=== PATIENT | female | born 1945 | race Caucasian/White ===

== ENCOUNTER → 2020-03-15 10:13 | Outpatient (CLI) | payer MEDICARE, OTHER, SELFPAY ==
--- NOTE | ~2020-03-15 | DEXA_ITS ---
Bone Density Report Name: Danielle Dial Age: 74 Sex: Female Ethnicity: White Date of : 1945 Indication: postmenopausal; screening for osteoporosis; height loss; inflammatory bowel disease; prior fracture; Referring Provider: Remedios Christensen Study: Bone densitometry was performed. Exam Date: March 15, 2020 Accession number: [id number] Bone Density: Region BMD T-score Z-score Classification AP Spine (L1-L4) 0.921 -1.1 1.4 Osteopenia Femoral Neck (Left) 0.724 -1.1 1.0 Osteopenia Total Hip (Left) 0.861 -0.7 1.2 Normal Femoral Neck (Right) 0.819 -0.3 1.9 Normal Total Hip (Right) 0.885 -0.5 1.4 Normal Total Hip Mean 0.873 -0.6 1.3 Normal World Health Organization criteria for BMD impression classify patients as: Normal (T-score at or above -1.0), Osteopenia (T-score between -1.0 and -2.5), or Osteoporosis (T-score at or below -2.5). 10-year Fracture Risk(1): Major Osteoporotic Fracture 16% Hip Fracture 2.5% Reported Risk Factors: [place] (), Neck BMD=0.724, BMI=30.1, previous fracture (1) FRAX(R) Version 3.08. Fracture probability calculated for an untreated patient. Fracture probability may be lower if the patient has received treatment. Previous Exams: Region Exam Age BMD T-score BMD Change BMD Change Date g/cm2 vs Baseline vs Previous AP Spine(L1-L4) 03/15/2020 74 0.921 -1.1 0.018 -0.030* 04/19/2017 71 0.951 -0.9 0.048* 0.048* 04/16/2015 69 0.903 -1.3 Total Hip(Left) 03/15/2020 74 0.861 -0.7 0.025 0.014 04/19/2017 71 0.847 -0.8 0.011 0.011 04/16/2015 69 0.836 -0.9 Total Hip(Right) 03/15/2020 74 0.885 -0.5 0.034* 0.019 04/19/2017 71 0.866 -0.6 0.016 0.016 04/16/2015 69 0.851 -0.7 *Denotes significance at 95% confidence level, LSC for AP Spine = 0.022 g/cm2, LSC for Total Hip = 0.027 g/cm2 Clinical Information Provided by Patient: Has had a low trauma fracture Has used the following medications: Vitamin D, Calcium Has the following medical conditions: Inflammatory bowel diseases, COLITIS Patient maximum height was 64.7 Menopause Age: 46 Drinks caffeinated beverages Onset of menses at age 10 Number of children 2 Impression: The patient has low bone mass, based on the Total Spine T-score. The patient has an estimated ten-year risk of hip fracture of 2.5% and a
== END ==
PROVIDERS: PCP Internal Medicine; Visit Provider Nurse Practitioner
DX: Z78.0 Asymptomatic menopausal state (principal); M85.88 Other specified disorders of bone density and structure, other site; M85.852 Other specified disorders of bone density and structure, left thigh
CPT/HCPCS: 77080

== ENCOUNTER 2020-03-22 07:55 | Outpatient (CLI) | payer MEDICARE, OTHER, SELFPAY ==
--- NOTE | ~2020-03-22 | NM_ITS ---
EXAMINATION: NM bone scan whole body DATE: 03/22/2020 12:32 INDICATION: L1 spinal lesion. TECHNIQUE: 26.65 mCi Tc-99m HDP was administered intravenously. Delayed whole-body scintigrams were obtained. COMPARISON: 03/13/[address] dated 03/06/2019 FINDINGS: No interval change in mild joint centered increased uptake at the left knee and bilateral feet, ankle s, shoulders, hands and wrists. No abnormal increased uptake associated with the lucent lesion at the right side of L1 which demonstrates intact vertical trabecula extending through central fat attenuat ion which would be most consistent with a hemangioma. IMPRESSION: 1. No suspicious bone lesions. Specifically no abnormal uptake associated with a lucent L1 bone lesio n with appearance on CT most consistent with a hemangioma. Reviewed, dictated and finalized at location A. T GUARD IMPRESSION: 1. No suspicious bone lesions. Specifically no abnormal uptake associated with a lucent L1 bone lesion with appearance on CT most consistent with a hemangioma .
== END 2020-03-22 07:56 | disposition home or self-care (01) ==
PROVIDERS: PCP Internal Medicine; Visit Provider Internal Medicine
DX: G95.9 Disease of spinal cord, unspecified (principal)
CPT/HCPCS: 78306; A9561

== ENCOUNTER → 2020-03-28 14:25 | Outpatient (CLI) | payer MEDICARE, OTHER, SELFPAY ==
--- NOTE | ~2020-03-28 | XR_ITS ---
EXAMINATION: XR knee LT 3V DATE: 03/28/2020 15:28 INDICATION: Unilateral primary osteoarthritis of left knee. TECHNIQUE: 3 views of left knee were obtained. COMPARISON: Left knee radiographs 02/07/2018, left knee MRI 11/16/2016 FINDINGS: Bone alignment is normal. No fracture. There is mild osteoarthritis of medial compartment c haracterized by tiny marginal osteophytes. There is an osteochondral lesion of the patella with inter anish worsening. There is chondrocalcinosis of the menisci. No knee joint effusion. IMPRESSION: 1. Worsened left knee osteoarthritis. Reviewed, dictated and finalized at location B. RVISOR TYPE DISK QUALITY CONTROL
== END ==
PROVIDERS: PCP Internal Medicine; Visit Provider Nurse Practitioner
DX: M17.12 Unilateral primary osteoarthritis, left knee (principal)
CPT/HCPCS: 73562

== ENCOUNTER → 2020-04-27 09:27 | Outpatient (CLI) | payer MEDICARE, OTHER, SELFPAY ==
--- NOTE | ~2020-04-27 | MR_ITS ---
EXAMINATION: MR knee LT wo con DATE: 04/27/2020 10:13 INDICATION: Anterior left knee pain TECHNIQUE: Magnetic resonance imaging (MRI) of the left knee was performed without intravenous contra st. Sequences included coronal PD-weighted FSE, coronal PD-weighted FS FSE, sagittal T2-weighted FSE , sagittal PD-weighted FS FSE and axial PD weighted fat saturated FSE. COMPARISON: Left knee radiographs dated 04/19/2020 FINDINGS: Medial compartment: Medial tear extending across the anterior half of the posterior horn of the medial meniscus. Partial- thickness cartilage loss along medial tibial plateau as well as the anterior to central weightbearing medial femoral condyle. More preserved cartilage thickness but with deep fissuring along the medial third of the posterior weightbearing medial femoral condyle. Lateral compartment: Complex lateral meniscal tear with dominant horizontal tear plane extending to the inferior articular surface of the body and anterior horn of the lateral meniscus. There is secondary radial tear plane at the midportion of the lateral body in the region with a more irregular macerated appearance to the meniscus at the junction of the body and anterior horn. Edema and developing cystic change in the ti sandy underlying the anterior root of the lateral meniscus. Partial-thickness cartilage loss at the buddy tral to posterior weightbearing lateral femoral condyle which involves greater than 50% the cartilage thickness with chondral surface regularity at the posterior weightbearing lateral femoral condyle. A dditional partial thickness cartilage loss along the medial aspect of the lateral tibial plateau curtis g the shoulder the intercondylar eminence. Patellofemoral compartment: Deep chondral ulceration and fissuring with underlying cortical irregularity and subarticular edema a t the medial patellar facet. Small region of deep chondral ulceration and fissuring at the inferolate ral aspect of the medial trochlea. Ligaments and tendons: Anterior and posterior cruciate ligaments are normal. The medial collateral ligament is normal. There is mild thickening and increased signal at the proximal fibular collateral ligament without surround ing edema consistent with mild scarring related to chronic sprain. The extensor mechanism is normal. The visualized medial and lateral hamstring tendons as well as the iliotibial band are normal. Fluid: Physiologic amount of fluid in the joint space. No loose osteochondral bodies identified. Osseous/other: Normal marrow signal aside from the previously noted small regions of edema at the medial patellar fa cet and tibial insertion of the anterior root of the lateral meniscus. No fracture or pathologic sue ow replacing process. IMPRESSION: 1. Complex tear of the body and anterior horn of the lateral meniscus. 2. Partial thickness radial tear at the posterior horn of the medial meniscus. 3. Mild tricompartmental osteoarthritis with high-grade chondromalacia the medial patellar facet and moderate grade chondromalacia at the medial trochlea and in the medial and lateral compartments. Reviewed, dictated and finalized at location B. ER EMBOSSER IMPRESSION: 1. Complex tear of the body and anterior horn of the lateral meniscus. 2. Partial thickness radial tear at the posterior horn of the medial meniscus. 3. Mild tricompartmental osteoarthritis with high-grade chondromalacia the medi al patellar facet and moderate grade chondromalacia at the medial trochlea and in the medial and lateral compartments.
== END ==
PROVIDERS: Visit Provider Nurse Practitioner Family
DX: M17.12 Unilateral primary osteoarthritis, left knee (principal); S83.282A Other tear of lateral meniscus, current injury, left knee, initial encounter; X58.XXXA Exposure to other specified factors, initial encounter
CPT/HCPCS: 73721

== ENCOUNTER 2020-06-03 09:16 | Outpatient (CLI) | payer MEDICARE, OTHER, SELFPAY ==
--- NOTE | 2020-06-03 09:20 | ECG_ITS ---
Measurements Intervals Laura Rate: 72 P: 47 NM: 137 QRS: 9 QRSD: 80 T: 17 QT: 360 QTc: 396 Interpretive Statements SINUS RHYTHM DELAYED PRECORDIAL R/S TRANSITION BASELINE ARTIFACT- I, III, AVR, AVL, AVF, V4-V6 BORDERLINE ECG Electronically Signed On 06-03-2020 9:34:34 CUSHION SEWER by Joel Benjamin D.O.
== END 2020-06-03 09:17 | disposition home or self-care (01) ==
LOC: ANHSURGERY 09:20
PROVIDERS: PCP Internal Medicine; Visit Provider Orthopaedic Surgery
DX: E78.00 Pure hypercholesterolemia, unspecified (principal); Z01.818 Encounter for other preprocedural examination; R94.31 Abnormal electrocardiogram [ECG] [EKG]
CPT/HCPCS: 93005

== ENCOUNTER → 2020-06-08 12:39 | Outpatient (CLI) | payer MEDICARE, OTHER, SELFPAY ==
[2020-06-09 00:20] LABS: SARS-CoV-2 RNA PCR Negative
== END ==
PROVIDERS: PCP Internal Medicine; Visit Provider Orthopaedic Surgery
DX: Z01.812 Encounter for preprocedural laboratory examination (principal); Z20.822 Contact with and (suspected) exposure to COVID-19
CPT/HCPCS: C9803; U0003; U0005

== ENCOUNTER 2020-06-12 00:08 | Day surgery (SDC) | payer MEDICARE, OTHER, SELFPAY ==
[2020-05-31 09:58] VITALS: BMI 29.2
--- NOTE | 2020-06-11 12:53 | WPDANESEPPF ---
Anes - Initial Pre Proc Eval Procedure: Operation Date: 06/12/20 10:00 Proposed Procedures p Left Knee Arthroscopy, Proceed As Indicated - Edilson Glass MD Date/Time: 06/11/20 12:53 Surgeon: Edilson Glass MD Pre Op Diagnosis: left knee medial and lateral meniscus tear Patient Data Age: 74 Gender: F Height: 1.64 m Weight: 78.47 kg Allergies Allergy/AdvReac Type Severity Reaction Status Date / Time oxytetracycline Allergy Severe FACIAL Verified 06/12/20 08:10 SWELLING Sulfa (Sulfonamide Allergy Severe Swelling Verified 06/12/20 08:10 Antibiotics) azithromycin Allergy Unknown Confusion Verified 06/12/20 08:10 tetracycline Allergy Unknown FACIAL Verified 06/12/20 08:10 SWELLING vancomycin Allergy Unknown Swelling Verified 06/12/20 08:10 Home Medications Medication Instructions Recorded Confirmed Type azathioprine 75 mg tablet 1.5 mg/kg PO DAILY tablet 07/06/19 06/12/20 History balsalazide 750 mg capsule 2,250 mg PO TID 07/06/19 06/12/20 History zurekngsbius-yobitumz-ffnows tablet 1 tablet PO DAILY 03/26/20 06/12/20 History acetaminophen 650 mg 650 mg PO Q12H 04/19/20 06/12/20 History tablet,extended release lactase 9,000 unit tablet 9,000 unit PO ONCE 04/19/20 06/12/20 History omeprazole 20 mg capsule,delayed 20 mg PO DAILY 04/19/20 06/12/20 History release chlorhexidine gluconate 4 % 1 applic TOPICAL ONCE #237 ml 05/14/20 05/31/20 Rx topical liquid levothyroxine 100 mcg tablet 100 mcg PO DAILY #90 tablet 05/29/20 06/12/20 Rx biotin 1,000 mcg chewable tablet 1,000 mcg PO DAILY 05/30/20 06/12/20 History calcium carbonate 600 mg calcium 600 mg PO BID 05/30/20 06/12/20 History (1,500 mg) tablet cholecalciferol (vitamin D3) 25 25 mcg PO DAILY 05/30/20 06/12/20 History mcg (1,000 unit) capsule fluticasone propionate 50 2 spray INTRANASAL DAILY 05/30/20 06/12/20 History mcg/actuation nasal spray,suspension loratadine 10 mg tablet 10 mg PO DAILY 05/30/20 06/12/20 History simvastatin 10 mg PO HS 05/31/20 06/12/20 History Patient hx anesthesia problems: none Family hx anesthesia problems: none PMFSH Past Medical History Medical History (Updated 06/04/20 @ 09:10 by JOSH ChampionP-C) Arthritis of left knee Breast cancer Colonic polyp Congestion of nasal sinus Degenerative joint disease of knee Dermatitis Esophageal stricture GERD (gastroesophageal reflux disease) Hyperlipidemia due to dietary fat intake Hypothyroidism, unspecified Left knee pain Lichen planus Osteopenia Postmenopausal Ulcerative colitis Weight gain Surgical History Surgical History H/O section History of elbow replacement Family History Family History Sibling Family history of multiple sclerosis Family history of alcoholism Family history of Parkinson's disease Father Family history of malignant neoplasm, Onset Age: 73 Mother Family history of Alzheimer's disease, Onset Age: 83 Other Depression Diabetes mellitus Family history of neuropathy History of malignant neoplasm of breast Social History Social History Smoking status: Never smoker Second hand tobacco smoke exposure: No Alcohol intake: current Drinks per week: 10 Substance use: never Substance use type: does not use Living arrangements: with family Gender identity (if verbalized by the patient): Female Spiritual care concerns: No Anes - Eval Final PreProcedure Day of Procedure 06/11/20 12:53 Patient weight: overweight Heart: regular rate and rhythm Lungs: clear to auscultation and normal air movement Airway: Mallampati scale class II Neurological: alert and oriented Last oral intake: >/= 8 hours ASA classification: III Emergent: no Anesthetic plan: proceed Anesthesia type and
[2020-06-12] VITALS (11 sets, daily range): BP systolic 140–172; BP diastolic 67–98; PULSE 64–95; RESP 12–18; TEMP 36.2–36.7; O2SAT 95–98
--- NOTE | 2020-06-12 07:38 | WPDHPUPDATE1 ---
History and Physical Update Update Date/Time: 06/12/20 07:38 History and Physical has been reviewed, including an updated exam of the patient. There are NO changes in the patient's condition. Risks, benefits, and alternatives have been discussed and questions answered. Patient agrees to proceed with procedure.
[2020-06-12] MEDS: ACETAMINOPHEN 500 MG TABLET 1000 MG PO (08:13)
[2020-06-12] MEDS: CELECOXIB 200 MG CAPSULE PO (08:13)
[2020-06-12] MEDS: LACTATED RINGERS 1,000 ML 30 ML IV CONT ×2 (08:48→10:19)
[2020-06-12] MEDS: ceFAZolin 2 GM/D5W 50 ML 2 GM/50 ML BAG IVPB (09:22)
[2020-06-12] MEDS: BUPIVACAINE HCL 0.5% PF 30 ML VIAL INFILTRATE (09:47)
--- NOTE | 2020-06-12 10:41 | P.OP_ITS ---
Procedure Note - Detailed Date of procedure: 06/12/20 Pre-op diagnosis: left knee medial and lateral meniscus tear Post-op diagnosis: other (medial meniscus tear, lateral meniscus tear, chondromalacia, synovitis) Procedure performed: LEFT KNEE SCOPE WITH PARTIAL MEDIAL MENISCECTOMY, PARTIAL LATERAL MENISCECTOMY AND MAJOR SYNOVECTOMY Description of procedure: PATIENT WAS TAKEN TO THE OR. LEFT LEG WAS PREPPED AND DRAPED STERILE. TROCARS WERE PLACED IN THE USUAL FASHION. CAMERA WAS INTRODUCED. THERE WAS CHONDROMALACIA TO THE PATELLA FEMORAL JOINT. THERE WAS A LOT OF SYNOVITIS IN ALL COMPARTMENTS. THE MEDIAL COMPARTMENT SHOWED CHONDROMAL ACIA TO THE MED FEMORAL CONDYLE. A SHAVER WAS USED TO PREFORM A CHONDROPLASTY. THERE WAS A COMPLEX MEDIAL MENISCUS TEAR. THE TEAR WAS RESECTED WITH A BITER AND A SHAVER DOWN TO A SMOOTH BASE. ABOUT 10% OF THE MENISCUS WAS REMOVED. THERE WAS A LARGE OSTEOCHONDRAL LESION IN THE POSTERIOR MEDIAL CONDYLE WHICH WAS DEBRIDED TO SMOOTH SURFACE. THE ACL WAS INTACT. THE LATERAL MENISCUS WAS TORN AT THE ANTERIOR HORN. THE TEAR WAS RESECTED. THE LAT COMPARTMENT HAD GRADE 2 CHONDROMALACIA AT THE LATERAL PLATEAU. CHONDROPLASTY WAS PREFORMED. A SYNOVECTOMY WAS PREFORMED WELL. THE PATELLO FEMORAL JOINT UNDERWENT CHONDROPLASTY. THERE WAS GRADE 2 CHONDROMALACIA IN MOST OF THE TROCHLEA AND PART OF THE PATELLA. SYNOVECTOMY WAS PREFORMED IN THE SUPERIOR MEDIAL COMPARTMENT. THE WOUNDS WERE APPROXIMATED WITH 4.0 NYLON. STERILE DRESSING WAS APPLIED. PATIENT WAS EXTUBATED. Anesthesia: GLMA Surgeon: Edilson Glass MD Estimated blood loss (mL): 5 Complications: No immediate complications Condition: stable Disposition: PACU
[2020-06-12] MEDS: fentaNYL CITRATE INJ (*CRX) 100 MCG/2 ML VIAL 25 MCG IV PUSH ×8 (10:53→11:24)
== END 2020-06-12 12:55 | disposition home or self-care (01) ==
PROVIDERS: PCP Internal Medicine; Visit Provider Orthopaedic Surgery
PROC: (CPT 29870; principal; 2020-06-12 10:00)
DX: M23.332 Other meniscus derangements, other medial meniscus, left knee (principal); M23.362 Other meniscus derangements, other lateral meniscus, left knee; M94.262 Chondromalacia, left knee; M65.862 Other synovitis and tenosynovitis, left lower leg; E78.5 Hyperlipidemia, unspecified; E03.9 Hypothyroidism, unspecified; K21.9 Gastro-esophageal reflux disease without esophagitis
CPT/HCPCS: 29880; 97116; A9270; J0690; J2704; J3010; J7120

== ENCOUNTER 2020-11-13 00:59 | Day surgery (SDC) | payer MEDICARE, OTHER, SELFPAY ==
[2020-10-30 11:24] VITALS: BMI 29.5
[2020-11-13 06:52] VITALS: BP 146/91; PULSE 90; RESP 18; TEMP 36.2; O2SAT 93; BMI 29.3
[2020-11-13] MEDS: LACTATED RINGERS 1,000 ML 150 ML IV CONT (06:56)
--- NOTE | 2020-11-13 07:07 | PM.HPGS ---
History of Present Illness History of Present Illness Consent: Risks, benefits, and alternatives have been discussed and questions answered. Patient agrees to proceed with procedure. Chief complaint: ulcerative colitis Narrative: Danielle Dial is a 75 year old female with chronic ulcerative colitis of over 8 years duration. At the time of her last colonoscopy, 3 years ago, many of the biopsies were indefinite for dysplasia Review of Systems Review of Systems: All systems reviewed & are unremarkable except as noted in HPI and below PMFSH Past Medical History Medical History Arthritis of left knee Breast cancer Colonic polyp Congestion of nasal sinus Degenerative joint disease of knee Dermatitis Esophageal stricture GERD (gastroesophageal reflux disease) Hyperlipidemia due to dietary fat intake Hypothyroidism, unspecified Left knee pain Lichen planus Osteopenia Postmenopausal Ulcerative colitis Weight gain Surgical History Surgical History H/O arthroscopic knee surgery Jun 12, 2020 H/O section History of dental surgery August 06, 2020 History of elbow replacement Family History Family History Sibling Family history of multiple sclerosis Family history of alcoholism Family history of Parkinson's disease Father Family history of malignant neoplasm, Onset Age: 73 Mother Family history of Alzheimer's disease, Onset Age: 83 Other Depression Diabetes mellitus Family history of neuropathy History of malignant neoplasm of breast Social History Social History Smoking status: Never smoker Second hand tobacco smoke exposure: No Alcohol intake: current Drinks per week: 6 Alcohol use details: WINE Substance use: never Substance use type: does not use Living arrangements: with family Gender identity (if verbalized by the patient): Female Spiritual care concerns: No Meds Home Medications and Allergies Home Medications Medication Instructions Recorded Confirmed Type [id number]-lijqwrnh-ndhkkb tablet 1 tablet PO DAILY 03/26/20 11/13/20 History acetaminophen 650 mg 650 mg PO Q12H 04/19/20 11/13/20 History tablet,extended release lactase 9,000 unit tablet 9,000 unit PO DAILY 04/19/20 11/13/20 History omeprazole 20 mg capsule,delayed 20 mg PO EVERY OTHER DAY 04/19/20 11/13/20 History release biotin 1,000 mcg chewable tablet 1,000 mcg PO DAILY 05/30/20 11/13/20 History calcium carbonate 600 mg calcium 600 mg PO BID 05/30/20 11/13/20 History (1,500 mg) tablet cholecalciferol (vitamin D3) 25 25 mcg PO DAILY 05/30/20 11/13/20 History mcg (1,000 unit) capsule fluticasone propionate 50 2 spray INTRANASAL DAILY 05/30/20 11/13/20 History mcg/actuation nasal spray,suspension loratadine 10 mg tablet 10 mg PO DAILY 05/30/20 11/13/20 History simvastatin 10 mg PO HS 05/31/20 11/13/20 History levothyroxine 100 mcg tablet 100 mcg PO DAILY #90 tablet 08/28/20 11/13/20 Rx balsalazide 750 mg capsule 2,250 mg PO TID 90 Days #810 cap 09/10/20 11/13/20 Rx azathioprine 75 mg tablet 75 mg PO DAILY #86 tablet 10/23/20 11/13/20 Rx Allergies Allergy/AdvReac Type Severity Reaction Status Date / Time oxytetracycline Allergy Severe FACIAL Verified 11/13/20 06:51 SWELLING Sulfa (Sulfonamide Allergy Severe Swelling Verified 11/13/20 06:51 Antibiotics) azithromycin Allergy Unknown Confusion Verified 11/13/20 06:51 tetracycline Allergy Unknown FACIAL Verified 11/13/20 06:51 SWELLING vancomycin Allergy Unknown Swelling Verified 11/13/20 06:51 Vital Signs Vital Signs - 24 hr 11/13/20 06:52 Temperature 36.2 C L Pulse Rate 90 Respiratory Rate 18 Blood Pressure 146/91 H Pulse Oximetry 93 Exam Resp: Auscultation
--- NOTE | 2020-11-13 07:40 | WPDANESEPPF ---
Anes - Initial Pre Proc Eval Procedure: Operation Date: 11/13/20 08:00 Proposed Procedures p Colonoscopy - Ron Hill MD Date/Time: 11/13/20 07:40 Surgeon: Ron Hill MD Pre Op Diagnosis: ulcerative colitis Patient Data Age: 75 Gender: F Height: 1.63 m Weight: 77.5 kg Last Vital Signs Temp 97.2 F L 11/13/20 06:52 Pulse 90 11/13/20 06:52 Resp 18 11/13/20 06:52 BP 146/91 H 11/13/20 06:52 Pulse Ox 93 11/13/20 06:52 Allergies Allergy/AdvReac Type Severity Reaction Status Date / Time oxytetracycline Allergy Severe FACIAL Verified 11/13/20 06:51 SWELLING Sulfa (Sulfonamide Allergy Severe Swelling Verified 11/13/20 06:51 Antibiotics) azithromycin Allergy Unknown Confusion Verified 11/13/20 06:51 tetracycline Allergy Unknown FACIAL Verified 11/13/20 06:51 SWELLING vancomycin Allergy Unknown Swelling Verified 11/13/20 06:51 Home Medications Medication Instructions Recorded Confirmed Type [id number]-adnoxhzd-rvbsqp tablet 1 tablet PO DAILY 03/26/20 11/13/20 History acetaminophen 650 mg 650 mg PO Q12H 04/19/20 11/13/20 History tablet,extended release lactase 9,000 unit tablet 9,000 unit PO DAILY 04/19/20 11/13/20 History omeprazole 20 mg capsule,delayed 20 mg PO EVERY OTHER DAY 04/19/20 11/13/20 History release biotin 1,000 mcg chewable tablet 1,000 mcg PO DAILY 05/30/20 11/13/20 History calcium carbonate 600 mg calcium 600 mg PO BID 05/30/20 11/13/20 History (1,500 mg) tablet cholecalciferol (vitamin D3) 25 25 mcg PO DAILY 05/30/20 11/13/20 History mcg (1,000 unit) capsule fluticasone propionate 50 2 spray INTRANASAL DAILY 05/30/20 11/13/20 History mcg/actuation nasal spray,suspension loratadine 10 mg tablet 10 mg PO DAILY 05/30/20 11/13/20 History simvastatin 10 mg PO HS 05/31/20 11/13/20 History levothyroxine 100 mcg tablet 100 mcg PO DAILY #90 tablet 08/28/20 11/13/20 Rx balsalazide 750 mg capsule 2,250 mg PO TID 90 Days #810 cap 09/10/20 11/13/20 Rx azathioprine 75 mg tablet 75 mg PO DAILY #86 tablet 10/23/20 11/13/20 Rx Patient hx anesthesia problems: none Family hx anesthesia problems: none [facility] Past Medical History Medical History Arthritis of left knee Breast cancer Colonic polyp Congestion of nasal sinus Degenerative joint disease of knee Dermatitis Esophageal stricture GERD (gastroesophageal reflux disease) Hyperlipidemia due to dietary fat intake Hypothyroidism, unspecified Left knee pain Lichen planus Osteopenia Postmenopausal Ulcerative colitis Weight gain Surgical History Surgical History H/O arthroscopic knee surgery Jun 12, 2020 H/O section History of dental surgery August 06, 2020 History of elbow replacement Family History Family History Sibling Family history of multiple sclerosis Family history of alcoholism Family history of Parkinson's disease Father Family history of malignant neoplasm, Onset Age: 73 Mother Family history of Alzheimer's disease, Onset Age: 83 Other Depression Diabetes mellitus Family history of neuropathy History of malignant neoplasm of breast Social History Social History Smoking status: Never smoker Second hand tobacco smoke exposure: No Alcohol intake: current Drinks per week: 6 Alcohol use details: WINE Substance use: never Substance use type: does not use Living arrangements: with family Gender identity (if verbalized by the patient): Female Spiritual care concerns: No Anes - Eval Final PreProcedure Day of Procedure 11/13/20 07:40 Patient weight: overweight Heart: regular rate and rhythm Lungs: clear to auscultation Airway: Mallampati scale class II Neurological: alert and oriented L
[2020-11-13 08:19] VITALS: BP 125/69; PULSE 76; RESP 22; O2SAT 97
[2020-11-13 08:29] VITALS: BP 124/68; PULSE 75; RESP 15; O2SAT 97
[2020-11-13 08:39] VITALS: BP 142/76; PULSE 66; RESP 15; O2SAT 96
== END 2020-11-13 08:56 | disposition home or self-care (01) ==
PROVIDERS: PCP Internal Medicine; Visit Provider Internal Medicine Gastroenterology
PROC: 0DJD8ZZ Inspection of Lower Intestinal Tract, Via Natural or Artificial Opening Endoscopic (ICD-10-PCS; CPT 45378; principal; 2020-11-13 08:00)
DX: K51.90 Ulcerative colitis, unspecified, without complications (principal); K57.30 Diverticulosis of large intestine without perforation or abscess without bleeding; E78.5 Hyperlipidemia, unspecified; E03.9 Hypothyroidism, unspecified; K21.9 Gastro-esophageal reflux disease without esophagitis; L43.9 Lichen planus, unspecified; M85.80 Other specified disorders of bone density and structure, unspecified site
CPT/HCPCS: 45380; 88305; J2704; J7120

== ENCOUNTER 2020-12-11 09:16 | Outpatient (CLI) | payer MEDICARE, OTHER, SELFPAY ==
[2020-12-11 09:53] LABS: Basophils Percent Auto 0.7 % (0.2-1.2); Eosinophils Absolute Auto 0.1 K/mm3 (0-0.3); Eosinophils Percent Auto 1.2 % (0-4.4); Hematocrit 40.5 % (37.0-47.0); Hemoglobin 13.8 g/dL (12.0-15.0); Immature Granulocyte Absolute 0.02 K/mm3 (0.00-0.031); Immature Granulocyte Percent A 0.5 % (0-0.5); Lymphocytes Absolute Auto 0.88 K/mm3 (0.9-3.2); Lymphocytes Percent Auto 20.7 % (18.3-44.2); Mean Corpuscular HGB Conc 34.1 g/dl (32-36); Mean Corpuscular Hemoglobin 36.3 pg (26-34); Mean Corpuscular Volume 106.6 fl (80-100); Mean Platelet Volume 8.5 fl (7.4-10.4); Monocytes Absolute Auto 0.5 K/mm3 (0.1-0.6); Monocytes Percent Auto 11.8 % (2.6-8.5); Neutrophils Absolute Auto 2.8 K/mm3 (1.3-6.7); Neutrophils Percent Auto 65.1 % (45.5-73.1); Platelet Count Result 241 k/mm3 (150-375); Red Cell Distribution Width 12.6 % (11.5-14.5); White Blood Count 4.3 K/mm3 (4.5-10.0)
[2020-12-11 10:04] LABS: Alanine Aminotransferase 10 U/L (4-35); Albumin Level 4.6 g/dL (3.5-5.1); Alkaline Phosphatase 54 U/L (38-126); Aspartate Amino Transferase 31 U/L (14-36); Bilirubin,Total 1.1 mg/dL (0.2-1.3)
== END 2020-12-11 09:17 | disposition home or self-care (01) ==
PROVIDERS: PCP Internal Medicine; Visit Provider Internal Medicine Gastroenterology
DX: K51.919 Ulcerative colitis, unspecified with unspecified complications (principal)
CPT/HCPCS: 36415; 80076; 85025

== ENCOUNTER 2021-04-30 09:53 | Outpatient (CLI) | payer MEDICARE, OTHER, SELFPAY ==
[2021-05-07 00:37] LABS: Calprotectin, Stool 403 mcg/g
== END 2021-04-30 09:54 | disposition home or self-care (01) ==
PROVIDERS: PCP Internal Medicine; Visit Provider Internal Medicine Gastroenterology
DX: K51.919 Ulcerative colitis, unspecified with unspecified complications (principal)
CPT/HCPCS: 83993

== ENCOUNTER 2021-07-30 10:38 | Emergency (ER) | payer MEDICARE, OTHER, SELFPAY ==
[2021-07-30 10:54] VITALS: BP 148/70; PULSE 99; RESP 18; TEMP 36.7; O2SAT 97
--- NOTE | 2021-07-30 11:03 | ED.URI ---
HPI - URI/Sore Throat General Chief Complaint: Upper Respiratory Infection Stated Complaint: Sore Throat Time Seen by Provider: 07/30/21 11:03 Source: patient Mode of arrival: ambulatory Limitations: no limitations History of Present Illness HPI Narrative: Danielle Dial is a 76 yo female with hypothyroid, breast cancer, osteopenia, and high cholesterol who comes with complaints of sore throat started yesterday patient is picking up grandchildren and wants to make sure that she has had strep throat. Related Data Home Medications Medication Instructions Recorded Confirmed ugunuuwqdfni-zlpqzbas-nofiro tablet 1 tablet PO DAILY 03/26/20 07/30/21 acetaminophen 650 mg 650 mg PO Q12H 04/19/20 07/30/21 tablet,extended release lactase 9,000 unit tablet 9,000 unit PO DAILY 04/19/20 07/30/21 omeprazole 20 mg capsule,delayed 20 mg PO EVERY OTHER DAY 04/19/20 07/30/21 release biotin 1,000 mcg chewable tablet 1,000 mcg PO DAILY 05/30/20 07/30/21 calcium carbonate 600 mg calcium 600 mg PO BID 05/30/20 07/30/21 (1,500 mg) tablet cholecalciferol (vitamin D3) 25 25 mcg PO DAILY 05/30/20 07/30/21 mcg (1,000 unit) capsule fluticasone propionate 50 2 spray INTRANASAL DAILY 05/30/20 07/30/21 mcg/actuation nasal spray,suspension loratadine 10 mg tablet 10 mg PO DAILY 05/30/20 07/30/21 Allergies Allergy/AdvReac Type Severity Reaction Status Date / Time oxytetracycline Allergy Severe FACIAL Verified 07/30/21 10:55 SWELLING Sulfa (Sulfonamide Allergy Severe Swelling Verified 07/30/21 10:55 Antibiotics) tetracycline Allergy Severe FACIAL Verified 07/30/21 10:55 SWELLING vancomycin Allergy Severe Swelling Verified 07/30/21 10:55 azithromycin Allergy Intermediate Confusion Verified 07/30/21 10:55 Review of Systems Review of Systems: CONSTITUTIONAL: Denies fever, chills, sweats. EYES: Denies visual changes, redness, discharge. ENT: Denies rhinorrhea, congestion, has sore throat, otalgia. CARDIOVASCULAR: Denies chest pain, palpitations, edema. RESPIRATORY: Denies dyspnea, wheezing, cough GASTROINTESTINAL: Denies abdominal pain, nausea, vomiting, diarrhea. GENITOURINARY: Denies dysuria, hematuria, abnormal discharge SKIN: Denies rash or itching. NEUROLOGIC: Denies numbness, or focal weakness. PSYCHIATRIC: Denies anxiety or depression. [facility] Past Medical History Medical History Arthritis of left knee Breast cancer Colonic polyp Congestion of nasal sinus Degenerative joint disease of knee Dermatitis Esophageal stricture GERD (gastroesophageal reflux disease) Hyperlipidemia due to dietary fat intake Hypothyroidism, unspecified Left knee pain Lichen planus Osteopenia Postmenopausal Ulcerative colitis Weight gain Surgical History Surgical History H/O arthroscopic knee surgery Jun 12, 2020 H/O section History of dental surgery August 06, 2020 History of elbow replacement Family History Family History Sibling Family history of multiple sclerosis Family history of alcoholism Family history of Parkinson's disease Father Family history of malignant neoplasm, Onset Age: 73 Mother Family history of Alzheimer's disease, Onset Age: 83 Other Depression Diabetes mellitus Family history of neuropathy History of malignant neoplasm of breast Social History Social History Smoking status: Never smoker Second hand tobacco smoke exposure: No Alcohol intake: current Drinks per week: 6 Alcohol use details: WINE Substance use: never Substance use type: does not use Gender identity (if verbalized by the patient): Female Spiritual care concerns: No Comments At time of signature, I agree with nursing past medical, surgical, social an
== END 2021-07-30 11:14 | disposition home or self-care (01) ==
PROVIDERS: Emergency Provider Nurse Practitioner; PCP Internal Medicine
DX: J02.9 Acute pharyngitis, unspecified (principal); K21.9 Gastro-esophageal reflux disease without esophagitis; E78.5 Hyperlipidemia, unspecified; E03.9 Hypothyroidism, unspecified; M85.80 Other specified disorders of bone density and structure, unspecified site; M17.12 Unilateral primary osteoarthritis, left knee; Z85.3 Personal history of malignant neoplasm of breast; Z96.629 Presence of unspecified artificial elbow joint
CPT/HCPCS: 87081; 87880; 99213; G0463

== ENCOUNTER 2022-01-15 01:45 | Day surgery (SDC) | payer MEDICARE, OTHER, SELFPAY ==
[2022-01-07 09:50] VITALS: BMI 28.0
--- NOTE | 2022-01-14 13:22 | PM.HPGS ---
History of Present Illness History of Present Illness Consent: Risks, benefits, and alternatives have been discussed and questions answered. Patient agrees to proceed with procedure. Chief complaint: ulcerative colitis Narrative: Danielle Dial is a 76 year old female with ulcerative colitis. She continues to have 2 or 3 soft stools per day. Colonoscopy last year revealed active colitis throughout the colon and biopsies in the ascending colon were said to be indefinite for dysplasia Review of Systems Review of Systems: All systems reviewed & are unremarkable except as noted in HPI and below PMFSH Past Medical History Medical History Arthritis of left knee Breast cancer Colonic polyp Congestion of nasal sinus Degenerative joint disease of knee Dermatitis Esophageal stricture GERD (gastroesophageal reflux disease) Hyperlipidemia due to dietary fat intake Hypothyroidism, unspecified Left knee pain Lichen planus Osteopenia Postmenopausal Ulcerative colitis Weight gain Surgical History Surgical History H/O arthroscopic knee surgery Jun 12, 2020 H/O section History of dental surgery August 06, 2020 History of elbow replacement Family History Family History Sibling Family history of multiple sclerosis Family history of alcoholism Family history of Parkinson's disease Father Family history of malignant neoplasm, Onset Age: 73 Mother Family history of Alzheimer's disease, Onset Age: 83 Other Depression Diabetes mellitus Family history of neuropathy History of malignant neoplasm of breast Social History Social History Smoking status: Never smoker Second hand tobacco smoke exposure: No Alcohol intake: current Drinks per week: 6 Alcohol use details: WINE Substance use: never Substance use type: does not use Living arrangements: with family Gender identity (if verbalized by the patient): Female Spiritual care concerns: No Meds Home Medications and Allergies Home Medications Medication Instructions Recorded Confirmed Type jsizdevqelkn-ygcurgnc-fyfmdg 1 tablet PO DAILY 03/26/20 01/07/22 History tablet (Multivitamin 50 Plus tablet) acetaminophen 650 mg 650 mg PO Q12H 04/19/20 01/07/22 History tablet,extended release (Tylenol Arthritis Pain) lactase 9,000 unit tablet 9,000 unit PO DAILY 04/19/20 01/07/22 History omeprazole 20 mg capsule,delayed 20 mg PO EVERY OTHER DAY 04/19/20 01/07/22 History release biotin 1,000 mcg chewable tablet 1,000 mcg PO DAILY 05/30/20 01/07/22 History calcium carbonate 600 mg calcium 600 mg PO BID 05/30/20 01/07/22 History (1,500 mg) tablet cholecalciferol (vitamin D3) 25 25 mcg PO DAILY 05/30/20 01/07/22 History mcg (1,000 unit) capsule fluticasone propionate 50 2 spray intranasal DAILY 05/30/20 01/07/22 History mcg/actuation nasal spray,suspension (Allergy Relief (fluticasone)) loratadine 10 mg tablet 10 mg PO DAILY 05/30/20 01/07/22 History simvastatin 10 mg tablet 10 mg PO HS #90 tabs 07/28/21 01/07/22 Rx azathioprine 50 mg tablet See Rx Instructions .Route 12/23/21 01/07/22 Rx .COMPLEX #90 tabs balsalazide 750 mg capsule See Rx Instructions .Route 01/06/22 01/07/22 Rx .COMPLEX #540 caps levothyroxine 88 mcg tablet 88 mcg PO DAILY #30 tabs 01/09/22 Rx Allergies Allergy/AdvReac Type Severity Reaction Status Date / Time oxytetracycline Allergy Severe FACIAL Verified 01/15/22 10:36 SWELLING Sulfa (Sulfonamide Allergy Severe Swelling Verified 01/15/22 10:36 Antibiotics) tetracycline Allergy Severe FACIAL Verified 01/15/22 10:36 SWELLING vancomycin Allergy Severe Swelling Verified 01/15/22 10:36 azithromycin Allergy Intermediate Confusi
[2022-01-15 10:41] VITALS: BP 105/91; PULSE 75; RESP 18; O2SAT 99
[2022-01-15] MEDS: LACTATED RINGERS 1,000 ML 150 ML IV CONT (10:51)
--- NOTE | 2022-01-15 10:54 | WPDANESEPPF ---
Anes - Initial Pre Proc Eval Procedure: Operation Date: 01/15/22 11:30 Proposed Procedures p Colonoscopy - Ron Hill MD Date/Time: 01/15/22 10:54 Surgeon: Ron Hill MD Pre Op Diagnosis: ulcerative colitis Patient Data Age: 76 Gender: F Height: 1.63 m Weight: 75 kg Last Vital Signs Pulse 75 01/15/22 10:41 Resp 18 01/15/22 10:41 BP 105/91 H 01/15/22 10:41 Pulse Ox 99 01/15/22 10:41 O2 Del Method Room Air 01/15/22 10:41 Allergies Allergy/AdvReac Type Severity Reaction Status Date / Time oxytetracycline Allergy Severe FACIAL Verified 01/15/22 10:36 SWELLING Sulfa (Sulfonamide Allergy Severe Swelling Verified 01/15/22 10:36 Antibiotics) tetracycline Allergy Severe FACIAL Verified 01/15/22 10:36 SWELLING vancomycin Allergy Severe Swelling Verified 01/15/22 10:36 azithromycin Allergy Intermediate Confusion Verified 01/15/22 10:36 Home Medications Medication Instructions Recorded Confirmed Type repeogifiknc-dizbaoef-ieylks 1 tablet PO DAILY 03/26/20 01/15/22 History tablet (Multivitamin 50 Plus tablet) acetaminophen 650 mg 650 mg PO Q12H 04/19/20 01/15/22 History tablet,extended release (Tylenol Arthritis Pain) lactase 9,000 unit tablet 9,000 unit PO DAILY 04/19/20 01/15/22 History omeprazole 20 mg capsule,delayed 20 mg PO EVERY OTHER DAY 04/19/20 01/15/22 History release biotin 1,000 mcg chewable tablet 1,000 mcg PO DAILY 05/30/20 01/15/22 History calcium carbonate 600 mg calcium 600 mg PO BID 05/30/20 01/15/22 History (1,500 mg) tablet cholecalciferol (vitamin D3) 25 25 mcg PO DAILY 05/30/20 01/15/22 History mcg (1,000 unit) capsule fluticasone propionate 50 2 spray intranasal DAILY 05/30/20 01/15/22 History mcg/actuation nasal spray,suspension (Allergy Relief (fluticasone)) loratadine 10 mg tablet 10 mg PO DAILY 05/30/20 01/15/22 History simvastatin 10 mg tablet 10 mg PO HS #90 tabs 07/28/21 01/15/22 Rx azathioprine 50 mg tablet See Rx Instructions .Route 12/23/21 01/15/22 Rx .COMPLEX #90 tabs balsalazide 750 mg capsule See Rx Instructions .Route 01/06/22 01/15/22 Rx .COMPLEX #540 caps levothyroxine 88 mcg tablet 88 mcg PO DAILY #30 tabs 01/09/22 01/15/22 Rx Patient hx anesthesia problems: none Family hx anesthesia problems: none Results Review: All pre-operative results and documents have been reviewed as part of the pre-operative evaluation. [facility] Past Medical History Medical History Arthritis of left knee Breast cancer Colonic polyp Congestion of nasal sinus Degenerative joint disease of knee Dermatitis Esophageal stricture GERD (gastroesophageal reflux disease) Hyperlipidemia due to dietary fat intake Hypothyroidism, unspecified Left knee pain Lichen planus Osteopenia Postmenopausal Ulcerative colitis Weight gain Surgical History Surgical History H/O arthroscopic knee surgery Jun 12, 2020 H/O section History of dental surgery August 06, 2020 History of elbow replacement Family History Family History Sibling Family history of multiple sclerosis Family history of alcoholism Family history of Parkinson's disease Father Family history of malignant neoplasm, Onset Age: 73 Mother Family history of Alzheimer's disease, Onset Age: 83 Other Depression Diabetes mellitus Family history of neuropathy History of malignant neoplasm of breast Social History Social History Smoking status: Never smoker Second hand tobacco smoke exposure: No Alcohol intake: current Drinks per week: 6 Alcohol use details: WINE Substance use: never Substance use type: does not use Living arrangements: with family Gender identity (if verbaliz
[2022-01-15 11:28] VITALS: BP 134/77; PULSE 77; RESP 27; O2SAT 94
[2022-01-15 11:38] VITALS: BP 119/94; PULSE 78; RESP 29; O2SAT 96
[2022-01-15 11:48] VITALS: BP 141/83; PULSE 76; RESP 21; O2SAT 100
== END 2022-01-15 11:55 | disposition home or self-care (01) ==
PROVIDERS: PCP Internal Medicine; Visit Provider Internal Medicine Gastroenterology
PROC: 0DJD8ZZ Inspection of Lower Intestinal Tract, Via Natural or Artificial Opening Endoscopic (ICD-10-PCS; CPT 45378; principal; 2022-01-15 11:30)
DX: Z09 Encounter for follow-up examination after completed treatment for conditions other than malignant neoplasm (principal); K51.00 Ulcerative (chronic) pancolitis without complications; K64.8 Other hemorrhoids; K57.30 Diverticulosis of large intestine without perforation or abscess without bleeding; E78.5 Hyperlipidemia, unspecified; E03.9 Hypothyroidism, unspecified; K21.9 Gastro-esophageal reflux disease without esophagitis
CPT/HCPCS: 45380; 88305; J2704; J7120

== ENCOUNTER 2022-03-30 07:42 | Outpatient (CLI) | payer MEDICARE, OTHER, SELFPAY ==
--- NOTE | ~2022-03-30 | DEXA_ITS ---
Bone Density Report Name: ALMIN DIAZ Age: 76 Sex: Female Ethnicity: White Date of : 1945 Indication: postmenopausal; screening for osteoporosis; height loss; inflammatory bowel disease; prior fracture; cancer; Referring Provider: EULALIO PRABHAKAR Study: Bone densitometry was performed. Exam Date: March 30, 2022 Accession number: [id number] Bone Density: Region BMD T-score Z-score Classification AP Spine(L1-L4) 0.909 -1.3 1.4 Osteopenia Femoral Neck (Left) 0.756 -0.8 1.4 Normal Total Hip (Left) 0.868 -0.6 1.4 Normal Femoral Neck (Right) 0.828 -0.2 2.1 Normal Total Hip (Right) 0.876 -0.5 1.4 Normal Total Hip Mean 0.872 -0.6 1.4 Normal World Health Organization criteria for BMD impression classify patients as: Normal (T-score at or above -1.0), Osteopenia (T-score between -1.0 and -2.5), or Osteoporosis (T-score at or below -2.5). 10-year Fracture Risk(1): Major Osteoporotic Fracture 16% Hip Fracture 2.5% Reported Risk Factors: [place] (), Neck BMD=0.756, BMI=29.6, previous fracture (1) FRAX(R) Version 3.08. Fracture probability calculated for an untreated patient. Fracture probability may be lower if the patient has received treatment. Clinical Information Provided by Patient: Has had a low trauma fracture Has used the following medications: Vitamin D, Calcium Has the following medical conditions: Cancer, Inflammatory bowel diseases Patient maximum height was 64 Menopause Age: 48 Onset of menses at age 10 Number of children 2 Impression: The patient has low bone mass, based on the Total Spine T-score. The patient has an estimated ten-year risk of hip fracture of 2.5% and an estimated ten-year risk of major fracture of 16%, based on the WHO FRAX algorithm. The patient has risk factors, including: previous fracture. Discussion: BONE DENSITY IS LOW AT ONE OR MORE SKELETAL SITES. This patient's lowest T-score is low at one or more skeletal sites. It meets the World Health Organization's (WHO) criteria for ?low bone mass? (T-score between -1.0 and -2.5). The patient's 10-year risk of fracture as calculated by FRAX is less than the threshold where pharmacological therapy is recommended by the National Osteoporosis Foundation (NOF). However, all treatment decisions require clinical judgment and consideration of individual patient factors, including patient preferences, comorbidities, previous drug use, risk factors not captured in the FRAX model (e.g., frailty, falls, vitamin D deficiency, increased bone turnover, interval significant decline in bone density) and possible under or overestimation of fracture risk by FRAX. The patient should follow a healthful lifestyle (good nutrition with adequate calcium and vitamin D, and appropriate weight-bearing exercise).
== END 2022-03-30 07:43 | disposition home or self-care (01) ==
LOC: ANHIMG 07:43
PROVIDERS: PCP Internal Medicine; Visit Provider Nurse Practitioner
DX: M85.88 Other specified disorders of bone density and structure, other site (principal)
CPT/HCPCS: 77080

== ENCOUNTER 2022-11-30 11:33 | Outpatient (CLI) | payer MEDICARE, OTHER, SELFPAY ==
--- NOTE | ~2022-11-30 | CT_ITS ---
EXAMINATION: CT abdomen pelvis w con DATE: 11/30/2022 11:22 INDICATION: Unspecified abdominal pain. TECHNIQUE: Computed tomography (CT) of the abdomen and pelvis was performed with 100 mL Omnipaque 350 intravenous contrast. Automated exposure control and iterative reconstruction technique were employe d. The dose-length product was 700.35 mGy-cm. COMPARISON: CT abdomen 03/06/2019 FINDINGS: The visualized portions of the lung bases demonstrate mild atelectasis. No pleural effusion . The heart size is normal. No pericardial effusion. There is a small sliding hiatal hernia. The live r is normal. There are gallstones in the gallbladder, which is normal in size. There are hypodense ma sses in the spleen measuring up to 5 mm, likely granulomatous disease. There is a 1.3 cm cyst in the pancreas. The adrenal glands and left kidney are normal. There is a 6 mm cyst in right kidney. There are scattered diverticula in the colon. There is wall thickening in the sigmoid colon with surroundin g fat stranding, consistent with diverticulitis. The appendix is normal. There is trace pelvic ascite s. There are no pathologically enlarged lymph nodes. There is an umbilical hernia containing fat. The re is a supraumbilical ventral hernia containing fat. There is severe lumbar spondylosis. There is a hemangioma in L1 vertebral body. IMPRESSION: 1. Acute sigmoid diverticulitis. No perforation or abscess. Reviewed, dictated and finalized at location A.
[2022-11-30 11:17] LABS: Estimated Glomerular Filt Rate > 60
[2022-11-30 12:04] LABS: Basophils Percent Auto 0.7 % (0.2-1.2); Eosinophils Absolute Auto 0.1 K/mm3 (0-0.3); Eosinophils Percent Auto 1.1 % (0-4.4); Hematocrit 38.8 % (37.0-47.0); Hemoglobin 12.9 g/dL (12.0-15.0); Immature Granulocyte Absolute 0.02 K/mm3 (0.00-0.031); Immature Granulocyte Percent A 0.4 % (0-0.5); Lymphocytes Absolute Auto 0.95 K/mm3 (0.9-3.2); Lymphocytes Percent Auto 17.5 % (18.3-44.2); Mean Corpuscular HGB Conc 33.2 g/dl (32-36); Mean Corpuscular Hemoglobin 34.8 pg (26-34); Mean Corpuscular Volume 104.6 fl (80-100); Monocytes Absolute Auto 0.4 K/mm3 (0.1-0.6); Monocytes Percent Auto 8.1 % (2.6-8.5); Neutrophils Absolute Auto 3.9 K/mm3 (1.3-6.7); Neutrophils Percent Auto 72.2 % (45.5-73.1); Platelet Count Result 272 k/mm3 (150-375); Red Blood Count 3.71 M/mm3 (4.2-5.4); Red Cell Distribution Width 12.6 % (11.5-14.5); White Blood Count 5.4 K/mm3 (4.5-10.0)
[2022-11-30 12:05] LABS: Appearance Urine Clear (Clear); Bilirubin Urine Negative (Negative); Blood Urine Negative (Negative); Color Urine Yellow (Yellow); Glucose Urine UA Negative (Negative); Ketones Urine 1+ mg/dL (Negative); Leukocyte Esterase Ur Negative LEU/UL (NEGATIVE); Nitrate Urine Negative (Negative); Protein Urine Negative (Negative)
[2022-11-30 12:09] LABS: Add Urine Microscopic? NO
[2022-11-30 12:15] LABS: Alanine Aminotransferase 13 U/L (6-35); Albumin Level 3.9 g/dL (3.5-5.1); Alkaline Phosphatase 60 U/L (38-126); Anion Gap 8 mmol/L (8-16); Aspartate Amino Transferase 27 U/L (14-36); Bilirubin,Total 0.8 mg/dL (0.2-1.3); Blood Urea Nitrogen 13 mg/dL (7-17); Carbon Dioxide 31 mmol/L (22-30); Chloride 96 mmol/L (98-107); Estimated Glomerular Filt Rate > 60; Glucose 82 mg/dL (65-110); Potassium 4.7 mmol/L (3.4-5.0); Sodium 135 mmol/L (137-145)
== END 2022-11-30 11:34 | disposition home or self-care (01) ==
PROVIDERS: PCP Internal Medicine; Referring Provider Internal Medicine Gastroenterology; Visit Provider Internal Medicine
DX: E03.9 Hypothyroidism, unspecified (principal); R10.9 Unspecified abdominal pain; K57.32 Diverticulitis of large intestine without perforation or abscess without bleeding
CPT/HCPCS: 74177; 80053; 81003; 84443; 85025; Q9967

== ENCOUNTER 2023-02-11 08:51 | Outpatient (CLI) | payer MEDICARE, OTHER, SELFPAY ==
[2023-02-11 10:56] LABS: Free T4 Free Thyroxine 1.61 ng/mL (0.78-2.19)
[2023-02-11 11:14] LABS: Thyroid Stimulating Hormone 0.102 uIU/mL (0.465-4.680)
== END 2023-02-11 08:52 | disposition home or self-care (01) ==
LOC: ANHLAB 08:52
PROVIDERS: PCP Internal Medicine; Visit Provider Nurse Practitioner
DX: E03.9 Hypothyroidism, unspecified (principal)
CPT/HCPCS: 36415; 84439; 84443

== ENCOUNTER 2023-05-20 01:29 | Day surgery (SDC) | payer MEDICARE, OTHER, SELFPAY ==
[2023-04-26 11:54] VITALS: BMI 27.6
--- NOTE | 2023-05-18 10:19 | SUR.PREOP ---
Patient called regarding upcoming procedure. Reviewed preop instructions, appointment times, and procedure prep.
[2023-05-20 11:38] VITALS: BP 148/80; PULSE 86; RESP 19; TEMP 36.3; O2SAT 97
[2023-05-20] MEDS: LACTATED RINGERS 1,000 ML 150 ML IV CONT (11:52)
--- NOTE | 2023-05-20 12:01 | WPDANESEPPF ---
Anes - Initial Pre Proc Eval Procedure: Operation Date: 05/20/23 12:30 Proposed Procedures p Colonoscopy - Ron Hill MD Date/Time: 05/20/23 12:01 Surgeon: Ron Hill MD Pre Op Diagnosis: Ulcerative colitis,w/ unspecified complications Patient Data Age: 77 Gender: F Height: 1.63 m Weight: 73.2 kg Last Vital Signs Temp 97.3 F L 05/20/23 11:38 Pulse 86 05/20/23 11:38 Resp 19 05/20/23 11:38 BP 148/80 H 05/20/23 11:38 Pulse Ox 97 05/20/23 11:38 O2 Del Method Room Air 05/20/23 11:38 Allergies Allergy/AdvReac Type Severity Reaction Status Date / Time oxytetracycline Allergy Severe FACIAL Verified 05/20/23 11:37 SWELLING Sulfa (Sulfonamide Allergy Severe Swelling Verified 05/20/23 11:37 Antibiotics) tetracycline Allergy Severe FACIAL Verified 05/20/23 11:37 SWELLING vancomycin Allergy Severe Swelling Verified 05/20/23 11:37 azithromycin Allergy Intermediate Confusion Verified 05/20/23 11:37 Home Medications Medication Instructions Recorded Confirmed Type mgzzizqqluxr-gzbfihzb-tfzeik 1 tablet PO DAILY 03/26/20 04/26/23 History tablet (Multivitamin 50 Plus tablet) acetaminophen 650 mg 650 mg PO Q12H 04/19/20 04/26/23 History tablet,extended release (Tylenol Arthritis Pain) lactase 9,000 unit tablet 9,000 unit PO DAILY 04/19/20 04/26/23 History omeprazole 20 mg capsule,delayed 20 mg PO EVERY OTHER DAY 04/19/20 04/26/23 History release biotin 1,000 mcg chewable tablet 1,000 mcg PO DAILY 05/30/20 04/26/23 History calcium carbonate 600 mg calcium 600 mg PO BID 05/30/20 04/26/23 History (1,500 mg) tablet cholecalciferol (vitamin D3) 25 25 mcg PO DAILY 05/30/20 04/26/23 History mcg (1,000 unit) capsule fluticasone propionate 50 2 spray intranasal DAILY 05/30/20 04/26/23 History mcg/actuation nasal spray,suspension (Allergy Relief (fluticasone)) loratadine 10 mg tablet 10 mg PO DAILY 05/30/20 04/26/23 History azathioprine 50 mg tablet See Rx Instructions .Route 07/30/22 04/26/23 Rx .COMPLEX #90 tabs simvastatin 10 mg tablet 10 mg PO HS #90 tabs 01/21/23 04/26/23 Rx balsalazide 750 mg capsule 2,250 mg PO TID 04/26/23 04/26/23 History levothyroxine 75 mcg tablet 75 mcg PO DAILY #30 tabs 05/18/23 05/20/23 Rx Patient hx anesthesia problems: none Family hx anesthesia problems: none Results Review: All pre-operative results and documents have been reviewed as part of the pre-operative evaluation. [facility] Past Medical History Medical History Arthritis of left knee Breast cancer Colonic polyp Congestion of nasal sinus Degenerative joint disease of knee Dermatitis Esophageal stricture GERD (gastroesophageal reflux disease) Hyperlipidemia due to dietary fat intake Hypothyroidism, unspecified Left knee pain Lichen planus Osteopenia Postmenopausal Ulcerative colitis Weight gain Surgical History Surgical History H/O arthroscopic knee surgery Jun 12, 2020 H/O section History of dental surgery August 06, 2020 History of elbow replacement Family History Family History Sibling Family history of multiple sclerosis Family history of alcoholism Family history of Parkinson's disease Father Family history of malignant neoplasm, Onset Age: 73 Mother Family history of Alzheimer's disease, Onset Age: 83 Other Depression Diabetes mellitus Family history of neuropathy History of malignant neoplasm of breast Social History Social History (Updated 12/14/22 @ 11:39 by Paul Brooks MA) Smoking status: Never smoker Second hand tobacco smoke exposure: No Alcohol intake: current Drinks per week: 14 Substance use type: does not use Lack of Transportation: No Lack of Food: Never True Cu
--- NOTE | 2023-05-20 12:06 | PM.HPGS ---
History of Present Illness History of Present Illness Consent: Risks, benefits, and alternatives have been discussed and questions answered. Patient agrees to proceed with procedure. Chief complaint: Ulcerative colitis,w/ unspecified complications Narrative: Danielle Dial is a 77 year old female with known ulcerative colitis diagnosed at least 12 years ago. She had biopsies 2 years ago that were indefinite for dysplasia . Her last colonoscopy 15 months ago showed no active colitis and no dysplasia. Review of Systems Review of Systems: All systems reviewed & are unremarkable except as noted in HPI and below PMFSH Past Medical History Medical History Arthritis of left knee Breast cancer Colonic polyp Congestion of nasal sinus Degenerative joint disease of knee Dermatitis Esophageal stricture GERD (gastroesophageal reflux disease) Hyperlipidemia due to dietary fat intake Hypothyroidism, unspecified Left knee pain Lichen planus Osteopenia Postmenopausal Ulcerative colitis Weight gain Surgical History Surgical History H/O arthroscopic knee surgery Jun 12, 2020 H/O section History of dental surgery August 06, 2020 History of elbow replacement Family History Family History Sibling Family history of multiple sclerosis Family history of alcoholism Family history of Parkinson's disease Father Family history of malignant neoplasm, Onset Age: 73 Mother Family history of Alzheimer's disease, Onset Age: 83 Other Depression Diabetes mellitus Family history of neuropathy History of malignant neoplasm of breast Social History Social History Smoking status: Never smoker Second hand tobacco smoke exposure: No Alcohol intake: current Drinks per week: 14 Substance use type: does not use Lack of Transportation: No Lack of Food: Never True Current Housing: I Have Housing Concerned About Future Housing: No Difficulty Paying Gas/Electric Bills: No Difficulty Paying for Meds: No Currently Unemployed: No Education: Master's Degree or Higher Difficulty w/ Childcare or Family Care: No Living arrangements: other Occupation/Education: retired Gender identity (if verbalized by the patient): Female Meds Home Medications and Allergies Home Medications Medication Instructions Recorded Confirmed Type imwthmoywujc-rrbzfcvq-hgkomx 1 tablet PO DAILY 03/26/20 04/26/23 History tablet (Multivitamin 50 Plus tablet) acetaminophen 650 mg 650 mg PO Q12H 04/19/20 04/26/23 History tablet,extended release (Tylenol Arthritis Pain) lactase 9,000 unit tablet 9,000 unit PO DAILY 04/19/20 04/26/23 History omeprazole 20 mg capsule,delayed 20 mg PO EVERY OTHER DAY 04/19/20 04/26/23 History release biotin 1,000 mcg chewable tablet 1,000 mcg PO DAILY 05/30/20 04/26/23 History calcium carbonate 600 mg calcium 600 mg PO BID 05/30/20 04/26/23 History (1,500 mg) tablet cholecalciferol (vitamin D3) 25 25 mcg PO DAILY 05/30/20 04/26/23 History mcg (1,000 unit) capsule fluticasone propionate 50 2 spray intranasal DAILY 05/30/20 04/26/23 History mcg/actuation nasal spray,suspension (Allergy Relief (fluticasone)) loratadine 10 mg tablet 10 mg PO DAILY 05/30/20 04/26/23 History azathioprine 50 mg tablet See Rx Instructions .Route 07/30/22 04/26/23 Rx .COMPLEX #90 tabs simvastatin 10 mg tablet 10 mg PO HS #90 tabs 01/21/23 04/26/23 Rx balsalazide 750 mg capsule 2,250 mg PO TID 04/26/23 04/26/23 History levothyroxine 75 mcg tablet 75 mcg PO DAILY #30 tabs 05/18/23 05/20/23 Rx Allergies Allergy/AdvReac Type Severity Reaction Status Date / Time oxytetracycline Allergy Severe FACIAL Verified 05/20/23 11:37 SWELLING
[2023-05-20 13:07] VITALS: BP 129/64; PULSE 87; RESP 22; O2SAT 99
[2023-05-20 13:17] VITALS: BP 125/66; PULSE 77; RESP 22; O2SAT 100
[2023-05-20 13:27] VITALS: BP 115/80; PULSE 80; RESP 20; O2SAT 98
== END 2023-05-20 13:43 | disposition home or self-care (01) ==
PROVIDERS: PCP Internal Medicine; Visit Provider Internal Medicine Gastroenterology
PROC: 0DJD8ZZ Inspection of Lower Intestinal Tract, Via Natural or Artificial Opening Endoscopic (ICD-10-PCS; CPT 45378; principal; 2023-05-20 12:30)
DX: K52.9 Noninfective gastroenteritis and colitis, unspecified (principal); K63.89 Other specified diseases of intestine; K57.30 Diverticulosis of large intestine without perforation or abscess without bleeding; E78.5 Hyperlipidemia, unspecified; E03.9 Hypothyroidism, unspecified; K21.9 Gastro-esophageal reflux disease without esophagitis; M85.80 Other specified disorders of bone density and structure, unspecified site; E66.9 Obesity, unspecified; Z68.27 Body mass index [BMI] 27.0-27.9, adult; Z85.3 Personal history of malignant neoplasm of breast; Z86.010 Personal history of colon polyps; Z80.3 Family history of malignant neoplasm of breast
CPT/HCPCS: 45380; 88305; J2704; J7120

== ENCOUNTER 2023-12-28 15:09 | Emergency (ER) | payer MEDICARE, OTHER, SELFPAY ==
[2023-12-28 15:24] VITALS: BP 157/102; PULSE 93; RESP 16; TEMP 36.4; O2SAT 98
--- NOTE | 2023-12-28 16:09 | ED.GENADULT ---
HPI - General Adult General Chief complaint: Wound/Laceration Stated complaint: Bruised Left Eye Time Seen by Provider: 12/28/23 15:54 Source: patient, RN notes reviewed and old records reviewed Mode of arrival: ambulatory Limitations: no limitations History of Present Illness HPI narrative: 78-year-old female to [facility] for complaint of laceration to left lateral brow status post fall today. Patient states that she took her granddaughter for an event at her high school and was walking down the corridor when she tripped and fell onto her left side hitting her left shoulder, left cheek and her left lateral brow. Patient denies pain, pertinent medical history, loss of consciousness, dizziness, chest pain, syncope, visual changes, headache, nausea, vomiting. No active bleeding upon arrival. Patient states that she has held ice on the left eye area since the injury. 0.5 cm laceration to left lateral brow. Ecchymosis noted to left lower eyelid upon arrival. Patient ambulated to exam room without difficulty. Patient alert and oriented x3. Respirations even and nonlabored. Patient in no acute distress. Related Data Home Medications Medication Instructions Recorded Confirmed shryzgcmqtbo-cfolaoyv-kljqik 1 tablet PO DAILY 03/26/20 12/28/23 tablet (Multivitamin 50 Plus tablet) acetaminophen 650 mg 650 mg PO Q12H 04/19/20 12/28/23 tablet,extended release (Tylenol Arthritis Pain) lactase 9,000 unit tablet 9,000 unit PO DAILY 04/19/20 12/28/23 omeprazole 20 mg capsule,delayed 20 mg PO EVERY OTHER DAY 04/19/20 12/28/23 release biotin 1,000 mcg chewable tablet 1,000 mcg PO DAILY 05/30/20 12/28/23 calcium carbonate 600 mg PO BID 05/30/20 12/28/23 cholecalciferol (vitamin D3) 25 25 mcg PO DAILY 05/30/20 12/28/23 mcg (1,000 unit) capsule fluticasone propionate 50 2 spray intranasal DAILY 05/30/20 12/28/23 mcg/actuation nasal spray,suspension (Allergy Relief (fluticasone)) loratadine 10 mg tablet 10 mg PO DAILY 05/30/20 12/28/23 magnesium 250 mg tablet 250 mg PO DAILY 05/24/23 12/28/23 Allergies Allergy/AdvReac Type Severity Reaction Status Date / Time oxytetracycline Allergy Severe FACIAL Verified 12/28/23 15:14 SWELLING Sulfa (Sulfonamide Allergy Severe Swelling Verified 12/28/23 15:14 Antibiotics) tetracycline Allergy Severe FACIAL Verified 12/28/23 15:14 SWELLING vancomycin Allergy Severe Swelling Verified 12/28/23 15:14 azithromycin Allergy Intermediate Confusion Verified 12/28/23 15:14 Review of Systems Review of Systems: All systems reviewed & are unremarkable except as noted in HPI and below Constitutional: Constitutional: Reports as per HPI, Denies fatigue, Denies frequent falls, Denies headache(s) and Denies weakness Eyes: Eyes: Reports as per HPI, Denies blurry vision, Denies change in vision, Denies diplopia, Denies loss of peripheral vision, Denies loss of vision, Denies other visual disturbances, Denies eye pain, Denies seeing flashes, Denies photophobia, Denies spots in vision and Denies tunnel vision ENT: Reports system reviewed and no additional complaints, except as documented Cardiovascular: Cardiovascular: Reports no additional cardiovascular complaints, Denies chest pain and Denies dyspnea Respiratory: Respiratory: Reports no additional respiratory complaints, Denies cough and Denies dyspnea Musculoskeletal: Musculoskeletal: Reports as per HPI, Denies abnormal gait, Denies arthralgias, Denies joint swelling, Denies limited range of motion, Denies muscle weakness, Denies numbness, Denies stiffness and Denies tingling Neurologic: Reports as per HPI, Denies Abnormal speech present, Denies abnormal gait, Denies confusion, Denies vertigo, Denies dizziness, Denies syncope, Denies loss of vision, Denies numbness, Denies Sensory deficit (Neuro), Denies tingling and Denies weakness Psychiatric: Psychiatric: Reports no additional psychiatric complaints PMFSH Past Medical His
== END 2023-12-28 16:40 | disposition home or self-care (01) ==
PROVIDERS: Emergency Provider Nurse Practitioner Family; PCP Internal Medicine
DX: S01.112A Laceration without foreign body of left eyelid and periocular area, initial encounter (principal); W01.0XXA Fall on same level from slipping, tripping and stumbling without subsequent striking against object, initial encounter; K21.9 Gastro-esophageal reflux disease without esophagitis; E78.5 Hyperlipidemia, unspecified; E03.9 Hypothyroidism, unspecified; M85.80 Other specified disorders of bone density and structure, unspecified site
CPT/HCPCS: 12011; 99212; G0463

== ENCOUNTER 2023-12-29 10:52 | Outpatient (CLI) | payer MEDICARE, OTHER, SELFPAY ==
--- NOTE | ~2023-12-29 | XR_ITS ---
XR hand LT 2V Ordering provider: Remedios Christensen NP History: . W19.XXXA - Unspecified fall, initial the shallower of nasal melanoma joint now N Mammogram Estimated: CT abdomen encounter . Comparison: None. FINDINGS: BONES: No acute fracture or dislocation. JOINT SPACES: Narrowing of the radiocarpal joints. Erosion is seen in the distal end of the middle ph alanx of the middle finger. Osteoarthritic changes seen in the first carpometacarpal joint. , SOFT TISSUES: Unremarkable. IMPRESSION: No acute osseous abnormality left hand. Osteoarthritic changes in multiple joints. Reviewed, dictated and finalized at location A.
--- NOTE | ~2023-12-29 | XR_ITS ---
XR wrist LT 2V Ordering provider: Remedios Christensen NP History: . W19.XXXA - Unspecified fall, initial encounter . Comparison: None. FINDINGS: BONES: No acute fracture or dislocation. No definite scaphoid fracture. JOINT SPACES: Narrowing of the radiocarpal joint. Osteoarthritic changes of the first carpometacarpal joint. Narrowing of the other carpometacarpal joints and the intercarpal joints. SOFT TISSUES: Normal. IMPRESSION: No acute osseous abnormality left wrist. Osteoarthritic changes in multiple joints. Reviewed, dictated and finalized at location A.
== END 2023-12-29 10:53 ==
LOC: MICIMG 10:52
PROVIDERS: PCP Nurse Practitioner; Visit Provider Nurse Practitioner
DX: M79.642 Pain in left hand (principal)
CPT/HCPCS: 73100; 73120

== ENCOUNTER 2024-08-25 09:23 | Outpatient (CLI) | payer MEDICARE, OTHER, SELFPAY ==
--- NOTE | ~2024-08-25 | XR_ITS ---
AP view of the pelvis Clinical history: Pain Findings: No acute fracture or dislocation is seen. Osseous alignment is anatomic. Bilateral hip and SI joint spaces are preserved. Soft tissues are unremarkable. Impression: No significant abnormality is seen. Reviewed, dictated and finalized at location M. Impression: No significant abnormality is seen.
--- NOTE | ~2024-08-25 | XR_ITS ---
Lumbosacral Spine: AP and lateral views Clinical History: Congenital malformation Findings: The normal lordotic curve is maintained. No fracture or subluxation seen. There is severe d egenerative tearing at L4-L5 and L5-S1. There is advanced facet arthropathy from L4 through S1. The s acroiliac joints are normally outlined. Impression: Advanced degenerative spondylosis from L4 through S1, as above. Reviewed, dictated and finalized at location M. Impression: Advanced degenerative spondylosis from L4 through S1, as above.
== END 2024-08-25 09:24 | disposition home or self-care (01) ==
PROVIDERS: PCP Internal Medicine; Visit Provider Clinical Nurse Specialist
DX: R10.32 Left lower quadrant pain (principal); Q76.49 Other congenital malformations of spine, not associated with scoliosis; M47.897 Other spondylosis, lumbosacral region
CPT/HCPCS: 72100; 72170

== ENCOUNTER 2024-08-30 08:53 | Outpatient (CLI) | payer MEDICARE, OTHER, SELFPAY ==
--- NOTE | ~2024-08-30 | DEXA_ITS ---
Bone Density Report Name: LAMIN DIAZ Age: 79 Sex: Female Ethnicity: White Date of : 1945 Indication: osteopenia; height loss; inflammatory bowel disease; prior fracture; cancer; secondary osteoporosis; Referring Provider: NARESH LARSEN Study: Bone densitometry was performed. Exam Date: August 30, 2024 Accession number: [id number] Bone Density: Region BMD T-score Z-score Classification AP Spine(L1-L4) 0.913 -1.2 1.5 Osteopenia Femoral Neck (Left) 0.719 -1.2 1.2 Osteopenia Total Hip (Left) 0.845 -0.8 1.3 Normal Femoral Neck (Right) 0.769 -0.7 1.6 Normal Total Hip (Right) 0.882 -0.5 1.6 Normal Total Hip Mean 0.863 -0.7 1.5 Normal World Health Organization criteria for BMD impression classify patients as: Normal (T-score at or above -1.0), Osteopenia (T-score between -1.0 and -2.5), or Osteoporosis (T-score at or below -2.5). 10-year Fracture Risk(1): Major Osteoporotic Fracture 18% Hip Fracture 3.5% Reported Risk Factors: [place] (), Neck BMD=0.719, BMI=29.6, previous fracture, secondary osteoporosis (1) FRAX(R) Version 3.08. Fracture probability calculated for an untreated patient. Fracture probability may be lower if the patient has received treatment. Previous Exams: Region Exam Age BMD T-score BMD Change BMD Change Date g/cm2 vs Baseline vs Previous AP Spine (L1-L4) 08/30/2024 79 0.913 -1.2 0.004 (0.4%) 0.004 (0.4%) 03/30/2022 76 0.909 -1.3 Total Hip(Left) 08/30/2024 79 0.845 -0.8 -0.023 (-2.7%) -0.023 (-2.7%) 03/30/2022 76 0.868 -0.6 Total Hip(Right) 08/30/2024 79 0.882 -0.5 0.006 (0.7%) 0.006 (0.7%) 03/30/2022 76 0.876 -0.5 *Denotes significance at 95% confidence level, LSC for AP Spine = 0.022 g/cm2, LSC for Total Hip = 0.027 g/cm2 Clinical Information Provided by Patient: Has had a low trauma fracture Has secondary osteoporosis Has used the following medications: Fosamax (i.e. alendronate), Vitamin D, Calcium Has the following medical conditions: Cancer, Inflammatory bowel diseases Patient maximum height was 64 Menopause Age: 48 Drinks caffeinated beverages Onset of menses at age 10 Number of children 2 Impression: The patient has low bone mass, based on the Total Spine T-score. The patient has an estimated ten-year risk of hip fracture of 3.5% and an estimated ten-year risk of major fracture of 18%, based on the WHO FRAX algorithm. The patient has risk factors, including: previous fracture. No significant bone loss was observed. Discussion: BONE DENSITY IS LOW AT ONE OR MORE SKELETAL SITES. THE PATIENT'S BMD AND CLINICAL RISK FACTORS CONTRIBUTE TO THIS PATIENT'S INCREASED RISK OF FRACTURE. This patient's lowest T-score is low at one or more skeletal sites. It meets the World Health Organization's (WHO) criteria for ?low bone mass? (T-score between -1.0 and -2.5). The patient's 10-year risk of hip fracture as calculated by FRAX exceeds the threshold where pharmacological therapy is recommended by the National Osteoporosis Foundation (NOF). However, all treatment decisions require clinical judgment and consideration of individual patient factors, including patient preferences, comorbidities, previous drug use, risk factors not captured in the FRAX model (e.g., frailty, falls, vitamin D deficiency, increased bone turnover, interval significant decline in bone density) and possible under or overestimation of fracture risk by FRAX. The patient should follow a healthful lifestyle (good nutrition with adequate calcium and vitamin D, and appropriate weight-bearing exercise). Follow-Up: Consider a repeat BMD and Vertebral Fracture Assessment (VFA) exam in 2 years or sooner if medically necessary, to reassess this patient's status. Reported by: BILLY on 08/30/2024 9:33:00 AM. Reviewed, dictated and finalized at location A. [facility]
== END 2024-08-30 08:54 | disposition home or self-care (01) ==
LOC: ANHIMG 08:54
PROVIDERS: PCP Internal Medicine; Visit Provider Clinical Nurse Specialist
DX: Z78.0 Asymptomatic menopausal state (principal); M85.89 Other specified disorders of bone density and structure, multiple sites
CPT/HCPCS: 77080

== ENCOUNTER 2024-09-05 12:41 | Outpatient (CLI) | payer MEDICARE, OTHER, SELFPAY ==
--- NOTE | ~2024-09-05 | MR_ITS ---
MRI of the lumbar spine Clinical History: Degenerative disc disease Technique: Axial T2-weighted images, and sagittal T1-weighted, T2-weighted, and T2 fat-sat images wer e acquired. Findings: There is no fracture or subluxation of the lumbar spine. Vertebral bodies maintain normal h eight and alignment. There are type III Modic changes about the L4-L5 disc space due to underlying de generative disc disease. Intraosseous hemangioma noted L1 and L3. At L1-L2, there is no disc bulge or herniation. No spinal canal stenosis or neural foraminal narrowin g. At L2-L3, there is no disc bulge or herniation. There is mild facet arthropathy. No spinal canal sten osis or neural foraminal narrowing. At L3-L4, there is minimal disc bulge with moderate facet arthropathy. No central canal stenosis or n eural foraminal narrowing. At L4-L5, there is advanced degenerative disc narrowing with minimal disc bulge and mild facet arthro kaity. No central canal stenosis or neural foraminal narrowing. At L5-S1, there is minimal disc bulge and mild facet arthropathy. No central canal stenosis or neural foraminal narrowing. Paravertebral soft tissues are unremarkable. Impression: Mild degenerative spondylosis, as above. Reviewed, dictated and finalized at location . Impression: Mild degenerative spondylosis, as above.
== END 2024-09-05 12:42 | disposition home or self-care (01) ==
LOC: MICIMG 12:42
PROVIDERS: PCP Internal Medicine; Visit Provider Clinical Nurse Specialist
DX: M51.369 Other intervertebral disc degeneration, lumbar region without mention of lumbar back pain or lower extremity pain (principal); Q76.49 Other congenital malformations of spine, not associated with scoliosis
CPT/HCPCS: 72148

== ENCOUNTER 2025-03-02 16:01 | Emergency (ER) | payer MEDICARE, OTHER, SELFPAY ==
[2025-03-02 16:17] VITALS: BP 159/96; PULSE 88; RESP 16; TEMP 36.4; O2SAT 98
--- NOTE | 2025-03-02 16:17 | ED.FALL ---
HPI - Fall General Chief Complaint: Fall Stated Complaint: fall Time Seen by Provider: 03/02/25 16:15 Source: patient, RN notes reviewed and old records reviewed Mode of arrival: ambulatory (walker) Limitations: no limitations History of Present Illness HPI Narrative: 79 year old female accompanied by spouse presents to express care with complaints of fall at home today around 1030 face planting in the kitchen. Patient reports that she has felt drowsy since falling,denies any nausea or any vomiting. Patient reports that she did not feel dizzy prior to fall just lost balance. Patient states that she did take some Tylenol for her discomfort and has applied ice to her face and forehead due to pain and swelling and bruising of face, eye area and forehead, Patient also reports that she has been using her walker today because she hit her left knee also on floor is able to bear full weight to left leg. Patient reports that she is not on any blood thinners or or had any LOC at time of fall. MD complaint: fall Onset (ago): hour(s) (1030 today) Fall from: standing Place fall occurred: home Loss of consciousness: none Symptoms prior to fall: none Location of injury: head (frontal head) and face Severity: moderate Associated symptoms (after fall): other (swelling and bruising forehead, nasal swelling and bruising around eyes, states feels drowsy and fell onto left knee also) Related Data Home Medications ?Medication ?Instructions ?Recorded ?Confirmed ?Last Taken ?Type ehgivyppgcai-kfbuoifq-stxpka 1 tablet PO DAILY 03/26/20 08/24/24 01/15/22 History tablet (Multivitamin 50 Plus tablet) acetaminophen 650 mg 650 mg PO Q12H 04/19/20 08/24/24 01/15/22 History tablet,extended release (Tylenol Arthritis Pain) lactase 9,000 unit tablet 9,000 unit PO DAILY 04/19/20 08/24/24 01/15/22 History omeprazole 20 mg capsule,delayed 20 mg PO EVERY OTHER DAY 04/19/20 08/24/24 01/15/22 History release biotin 1,000 mcg chewable tablet 1,000 mcg PO DAILY 05/30/20 08/24/24 01/15/22 History calcium carbonate 600 mg PO BID 05/30/20 08/24/24 01/15/22 History cholecalciferol (vitamin D3) 25 25 mcg PO DAILY 05/30/20 08/24/24 01/15/22 History mcg (1,000 unit) capsule fluticasone propionate 50 2 spray intranasal DAILY 05/30/20 08/24/24 01/15/22 History mcg/actuation nasal spray,suspension (Allergy Relief (fluticasone)) loratadine 10 mg tablet 10 mg PO DAILY 05/30/20 08/24/24 01/15/22 History magnesium 250 mg tablet 250 mg PO DAILY 05/24/23 08/24/24 Unknown History Allergies Allergy/AdvReac Type Severity Reaction Status Date / Time oxytetracycline Allergy Severe FACIAL Verified 03/02/25 16:14 SWELLING Sulfa (Sulfonamide Allergy Severe Swelling Verified 03/02/25 16:14 Antibiotics) tetracycline Allergy Severe FACIAL Verified 03/02/25 16:14 SWELLING vancomycin Allergy Severe Swelling Verified 03/02/25 16:14 azithromycin Allergy Intermediate Confusion Verified 03/02/25 16:14 Review of Systems Review of Systems: CONSTITUTIONAL: Denies fever, chills, or sweats. EYES: Denies visual changes, redness, or discharge.positive for bruising and swelling around bilateral eyes and to nasal area ENT: Denies rhinorrhea, congestion, sore throat, or otalgia. CARDIOVASCULAR: Denies chest pain, palpitations, or edema. RESPIRATORY: Denies cough or dyspnea. GASTROINTESTINAL: Denies abdominal pain, nausea, vomiting, or diarrhea. GENITOURINARY: Denies dysuria or hematuria. SKIN: Denies rash or itching. MUSCULOSKELETAL: Denies back pain, positive for left anterior knee pain, or myalgia. NEUROLOGIC: positive for tenderness, bruising, and swelling of frontal head, reports no numbness, or weakness, denies any dizziness, reports has felt drowsy. PSYCHIATRIC: Denies anxiety or depression. All systems reviewed & are unremarkable except as noted in HPI and below PMFSH Past Medical History Medical History Grieving Influenza A Bertolotti's syndrome Congestion of nasal sinus Weight gain Degenerative joint disease of knee Left knee pain Osteopenia Colonic polyp GERD (gastroesophageal reflux disease) Dermatitis Arthritis of left knee Postmenopausal Lichen planus Esophageal stricture Breast cancer Hyperlipidemia due to dietary fat intake Hypothyroidism, unspecified Ulcerative colitis Surgical History Surgical History H/O arthroscopic knee surgery Jun 12, 2020 History of dental surgery August 06, 2020 History of elbow replacement H/O section Family History Family History Sibling Family history of multiple sclerosis Family history of alcoholism Family history of Parkinson's disease Father Family history of malignant neoplasm, Onset Age: 73 Mother Family history of Alzheimer's disease, Onset Age: 83 Other Depression Diabetes mellitus Family history of neuropathy History of malignant neoplasm of breast Social History Social History Smoking status: Never smoker Second hand tobacco smoke exposure: No Alcohol intake: current Drinks per week: 14 Substance use type: does not use Do You Feel Safe in your Home?: Yes Lack of Transportation: No Lack of Food: Never True Current Housing: I Have Housing Concerned About Future Housing: No Difficulty Paying Gas/Electric Bills: No Difficulty Paying for Meds: No Currently Unemployed: No Education: Master's Degree or Higher Difficulty w/ Childcare or Family Care: No Living arrangements: other Occupation/Education: retired Gender identity (if verbalized by the patient): Female Comments At time of signature, agree with nursing past medical, surgical, social and family history. There is no relevant family history pertinent to the presenting complaint Exam Narrative: GENERAL: ill-appearing due to injury, well-nourished, and in some acute distress. HEAD: Normocephalic, swelling bruising and discomfort to forehead region EYES: PERRLA and EOMI. no nystagmus noted ENT: Nares clear, no rhinorrhea or epistaxis. Mucous membranes moist. facial swelling with bruising around eyes and nose and extending into forehead NECK: Supple. no lymphadenopathy CHEST: Clear to auscultation. No respiratory distress. SAO2 98% on room air HEART: Regular rate and rhythm. No murmur heard. Normal peripheral pulses. ABDOMEN: Soft, nontender, nondistended, normal active bowel sounds. EXTREMITIES: Normal range of motion. No edema.reports some pain to anterior left knee SKIN: Warm, dry, no rash. NEURO: No focal deficits. Alert and oriented x3.tongue is midline smile is symmetrical, reports no dizziness no nausea or acute headache Course Course Emergency Course: Patient is aware of diagnosis, understands and agrees to treatment plan.? Anticipatory guidance given.? Patient agrees to follow-up as directed and is aware of reasons to seek care at the emergency department. Portions of this record may have been created with voice recognition software Level of Care: Express Care Visit Vital Signs Vital signs: Vital Signs Temperature 36.4 C 03/02/25 16:17 Pulse Rate 88 03/02/25 16:17 Respiratory Rate 16 03/02/25 16:17 Blood Pressure 159/96 H 03/02/25 16:17 Pulse Oximetry 98 03/02/25 16:17 Temperature 36.4 C 03/02/25 16:17 Pulse Rate 88 03/02/25 16:17 Respiratory Rate 16 03/02/25 16:17 Blood Pressure 159/96 H 03/02/25 16:17 Pulse Oximetry 98 03/02/25 16:17 reviewed MDM - Fall Differential Diagnosis Differential diagnosis: Likely other (facial injury, facial contusion, frontal head contusion, pain to left knee) Medical Records Attestation: I reviewed the patient's medical records. Critical Care Time Critical Care Time Critical Care Time: No Discharge Plan Discharge Clinical Impression: Injury of face Qualifiers: Encounter type: initial encounter Qualified Code(s): S09.93XA - Unspecified injury of face, initial encounter Fall from standing Qualifiers: Encounter type: initial encounter Qualified Code(s): W19.XXXA - Unspecified fall, initial encounter Contusion of knee, left Qualifiers: Encounter type: initial encounter Qualified Code(s): S80.02XA - Contusion of left knee, initial encounter Injury of frontal region of head Qualifiers: Encounter type: initial encounter Qualified Code(s): S09.90XA - Unspecified injury of head, initial encounter Patient Disposition: Acute Care Hospital Condition: Stable Patient Language: Korean Prescriptions: No Action acetaminophen [Tylenol Arthritis Pain] 650 mg tablet extended release 650 mg PO Q12H omeprazole 20 mg capsule,delayed release(DR/EC) 20 mg PO EVERY OTHER DAY lactase 9,000 unit tablet 9,000 unit PO DAILY Rx Instructions: administer with meals and/or snacks magnesium 250 mg tablet 250 mg PO DAILY Multivitamin 50 Plus Tablet 1 tablet PO DAILY biotin 1,000 mcg tablet,chewable 1,000 mcg PO DAILY calcium carbonate 600 mg calcium (1,500 mg) tablet 600 mg PO BID cholecalciferol (vitamin D3) 25 mcg (1,000 unit) capsule 25 mcg PO DAILY loratadine 10 mg tablet 10 mg PO DAILY fluticasone propionate [Allergy Relief (fluticasone)] 50 mcg/actuation spray,suspension 2 spray intranasal DAILY Rx Instructions: administer into each nostril azathioprine 50 mg tablet See Rx Instructions .ROUTE .COMPLEX Qty: 90 3RF Dose Instruction: TAKE 1 TABLET DAILY Rx Instructions: TAKE 1 TABLET DAILY simvastatin 10 mg tablet See Rx Instructions .ROUTE .COMPLEX Qty: 90 3RF Dose Instruction: TAKE 1 TABLET AT BEDTIME Rx Instructions: TAKE 1 TABLET AT BEDTIME balsalazide 750 mg capsule See Rx Instructions .ROUTE .COMPLEX Qty: 540 3RF Dose Instruction: TAKE 3 CAPSULES (2250 MG) TWICE A DAY Rx Instructions: TAKE 3 CAPSULES (2250 MG) TWICE A DAY levothyroxine 75 mcg tablet See Rx Instructions .ROUTE .COMPLEX Qty: 90 0RF Dose Instruction: TAKE 1 TABLET DAILY Rx Instructions: TAKE 1 TABLET DAILY sertraline 50 mg tablet 50 mg PO DAILY Qty: 90 1RF Rx Instructions: DUE FOR APPOINTMENT IN FEBRUARY Follow-up/Referrals: Markie Brewster DO [Primary Care Provider, Internal Medicine] Time of Disposition: 16:29 Quality Bk Coma Scale Eyes: Open Verbal: Oriented and Alert Motor: Follows Commands [place] Coma Total Score: 15
== END 2025-03-02 16:32 | disposition short-term general hospital (02) ==
LOC: EXPGOSH 16:04
PROVIDERS: Emergency Provider Registered Nurse; PCP Internal Medicine
DX: S05.12XA Contusion of eyeball and orbital tissues, left eye, initial encounter (principal); S05.11XA Contusion of eyeball and orbital tissues, right eye, initial encounter; W19.XXXA Unspecified fall, initial encounter; E03.9 Hypothyroidism, unspecified; E78.5 Hyperlipidemia, unspecified; M17.12 Unilateral primary osteoarthritis, left knee; K21.9 Gastro-esophageal reflux disease without esophagitis
CPT/HCPCS: 99212; G0463

== ENCOUNTER 2025-03-02 16:54 | Emergency (ER) | payer MEDICARE, OTHER, SELFPAY ==
--- OUTSIDE RECORDS SUMMARY | 2012-10-03 06:00 | XMS_ITS | Continuity of Care Document ---
Author Organization [facility] Address [address] [address] [place] [address] Phone Care Team Providers Care Oracle Ascp Consultant Name Role Phone Unavailable Unavailable Unavailable Allergies, [...] Diagnoses Date Provider Providers Copied on Encounter [facility] [address] [address] [address], [place], [id number], [place] tel:[phone] [place] [facility] Diverticulosi s Of ColonHiatal HerniaEsoph Stricture/amsha atzki RingColon Cancer ScreeningHiat al HerniaEsoph Stricture/masha atzki RingPersonal History Colon Polyps 0-201 3 No Information [place]erring [place]: [place], [address] [place], [address]. tel:[phone] [facility] [place], [address] [address], [place], [id number], tel:[phone] [facility] No Information 9-201 2 No Information Referring Provider: Referral Self, USE FOR SELF REFERRALS. [facility] [place], [address] [address], [place], [id number], tel:[phone] [place] [facility] Colon Cancer ScreeningPers onal History Colon Polyps 2-200 7 No Information Referring [place]: [place], [address] [place], [address]. tel:[phone] Family History Family Member Type Diagnosis Age At Onset No Information Payers Payer name Insurance type Covered green party ID Authoriza tion(s) Medicare NGS MB [id number] [facility] [employer] [facility] [id number] Social History Type Description Quantity Date Captured [...]
--- OUTSIDE RECORDS SUMMARY | 2012-10-03 06:00 | XMS_ITS | Continuity of Care Document ---
Author Organization [facility] Address [address] [address] [place] [address] Phone Care Team Providers Care Bench Assembly Inspector Name Role Phone Unavailable Unavailable Unavailable Allergies, [...] Diagnoses Date Provider Providers Copied on Encounter [facility] [address], [place], [id number], [place] tel:[phone] [place] [facility] Diverticulosi s Of ColonHiatal HerniaEsoph Stricture/masha atzki RingColon Cancer ScreeningHiat al HerniaEsoph Stricture/masha atzki RingPersonal History Colon Polyps 0-201 3 No Information Referring [place]: [place], [address] [place], [address]. tel:[phone] [facility] [place], [address] [address], [place], [id number], tel:[phone] [facility] No Information 9-201 2 No Information Referring Provider: Referral Self, USE FOR SELF REFERRALS. [facility] [place], [address] [address], [place], [id number], tel:[phone] [place] [facility] Colon Cancer ScreeningPers onal History Colon Polyps 2-200 7 No Information Referring Provider: [place], [address] [place], [address]. tel:[phone] Family History Family Member Type Diagnosis Age At Onset No Information Payers Payer name Insurance type Covered libertarian ID Authoriza tion(s) Medicare NGS MB [id number] [facility] [place] [facility] [id number] Social History Type Description Quantity Date Captured [...]
--- NOTE | ~2025-03-02 | CT_ITS ---
CT cervical spine wo con HISTORY: fall COMPARISON: None TECHNIQUE: Axial images of the cervical spine were obtained. Multiplanar reconstruction in the coronal, sagittal and axial reformats to evaluate for cervical fracture. FINDINGS: The images demonstrate no acute fracture or paravertebral soft tissue swelling. Diffuse degenerative changes with loss of disc space and uncovertebral hypertrophy as well as facet joint arthropathy are noted. The visualized aspect of the upper lungs are clear. IMPRESSION: No acute fracture or subluxation. Diffuse degenerative changes. All CT scans at this facility are performed using low dose modulation techniques as appropriate to perform exam including the following: automated exposure control; adjustment of the mA and/or kV according to patient size (this includes techniques or standardized protocols for targeted exams where does is matched to indication/reason for exam; i.e. extremities or head); use of iterative reconstruction technique). Reviewed, dictated and finalized at location S. IMPRESSION: No acute fracture or subluxation. Diffuse degenerative changes. All CT scans at this facility are performed using low dose modulation techniqu es as appropriate to perform exam including the following: automated exposure c ontrol; adjustment of the mA and/or kV according to patient size (this includes techniques or standardized protocols for targeted exams where does is matched to indication/reason for exam; i.e. extremities or head); use of iterative naga nstruction technique).
--- NOTE | ~2025-03-02 | CT_ITS ---
REFERENCE: [None available.] TECHNIQUE: Axial mm images of the head and neck were obtained without and with infusion of 100 cc of Isovue-370 of intravenous contrast. Postcontrast 1.25 mm axial images were then obtained. On an independent workstation, 0.625 mm axial images were utilized to render MIP and MPR images of the intracranial circulation. CTA NECK: The aortic arch demonstrates normal caliber and patency. Normal branching pattern is noted of the supraaortic vessels. The origins of the supraaortic vessels are widely patent.. The common carotid and cervical segments of the ICA and ECA demonstrate normal caliber and patency. The vertebral arteries are symmetric in size, demonstrating normal patency. CTA HEAD: The intracranial ICA, LYNNE, and MCA demonstrate normal caliber and patency. No hemodynamically significant stenosis or aneurysm is identified. The distal vertebral, basilar, and bilateral posterior cerebral arteries demonstrate normal caliber and patency. The superior cerebellar arteries are also widely patent. NONVASCULAR FINDINGS: The soft tissue of the neck is unremarkable. No mass or pathologic enhancement is noted. There is no pathologically enlarged lymphadenopathy. The airway is patent. No acute intracranial hemorrhage, mass, or extraaxial fluid collections are noted. Ventricular size is normal. The skull is intact. The visualized mastoid air cells and sinuses are clear. There is no pathologic enhancement. IMPRESSION: No hemodynamically significant stenosis is noted of the cervical and intracranial arterial vasculature. Reviewed, dictated and finalized at location S. IMPRESSION: No hemodynamically significant stenosis is noted of the cervical and intracrani al arterial vasculature.
--- NOTE | ~2025-03-02 | CT_ITS ---
EXAMINATION: CT brain wo laya, 03/02/2025 17:15 CDT HISTORY: fall COMPARISON: No comparisons available. Technique: Axial images obtained of the brain without contrast. One or more of the following dose reduction techniques were used: automated exposure control, adjustment of the mA and/or kV according to patient size, use of iterative reconstruction technique. Findings: Remote bilateral basal ganglia lacunar infarcts. No midline shift or mass effect. 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 Mastoid air cells unremarkable. Severe bilateral maxillary sinusitis. No acute fracture. Anterior subcutaneous soft tissue swelling with hemorrhage is noted. Impression: Posttraumatic soft tissue changes. No intracranial hemorrhage or infarct. Basilar artery aneurysm is not excluded. CTA is recommended to assess. Reviewed, dictated and finalized at location P. Impression: Posttraumatic soft tissue changes. No intracranial hemorrhage or infarct. Basil ar artery aneurysm is not excluded. CTA is recommended to assess.
--- NOTE | ~2025-03-02 | XR_ITS ---
XR knee LT 3V INDICATION: trauma, FALL . COMPARISON: None. FINDINGS: Frontal, lateral and oblique views of the left knee demonstrate no acute fracture or dislocation. There is no joint effusion. Degenerative changes with joint space narrowing and marginal osteophytes. IMPRESSION: Radiographic examination of the left knee demonstrates no acute fracture or dislocation. Reviewed, dictated and finalized at location S. IMPRESSION: Radiographic examination of the left knee demonstrates no acute fracture or dis location.
--- NOTE | ~2025-03-02 | XR_ITS ---
XR hand RT min 3V INDICATION: trauma . COMPARISON: None. FINDINGS: Frontal, lateral, and oblique views of the right hand demonstrate no acute fracture or dislocation. Degenerative changes with joint space narrowing and marginal erosive changes are noted. IMPRESSION: Radiographic examination of the right hand demonstrates no acute fracture or dislocation. Reviewed, dictated and finalized at location S. IMPRESSION: Radiographic examination of the right hand demonstrates no acute fracture or di slocation.
--- OUTSIDE RECORDS SUMMARY | 2025-03-02 16:56 | XMS_ITS | Patient Health Record ---
Author Organization [facility] [employer] [place] ([address]) Address [address] [facility] [address] [place] [address] Care Team Providers Care Software Writer Name Role Phone Markie Brewster Primary Care Provider Gayla Mondragon Unavailable [phone] Allergies Allergen (clinical drug ingredient) Drug/Non Drug Allergy documented on EMR Reaction Allergy Type Onset Date Status OXYTETRACYCLINE/PH ENAZOPYRIDINE/SULF AMETHIZOL (uncoded) facial swelling Allergy Active Substance with sulfonamide structure and antibacterial mechanism of action (substance) SULFA (uncoded) rash/fever Allergy Active Reason For Referral No Information Medications Medication SIG (Take, Route, Frequency, Duration) Notes Start Date End Date Status AZELASTINE NASAL 137 mcg/inh 2 spray(s) intranasally 2 times a day; Duration: 30 day(s) 10/11/2014 Active Azelastine HCl 137 MCG/SPRAY 2 spray(s) intranasally 2 times a day; Duration: 30 day(s) 10/11/2014 Active PATANASE 665 mcg/inh 2 spray(s) intranasally 2 times a day; Duration: 90 day(s) 10/05/2014 Active AZATHIOPRINE 50 mg 1.5 tab(s) orally once a day 10/05/2014 Active Vitamin D3 125 MCG (5000 UT) 1 cap(s) orally once a day Active PROBIOTIC FORMULA - 1 cap(s) orally once a day Active Simvastatin 20 MG 1 tab(s) orally once a day (at bedtime) Active Levothyroxine Sodium 88 MCG 1 tab(s) orally once a day Active CETIRIZINE HYDROCHLORIDE 10 mg 1 tab(s) orally once a day; Duration: 30 day(s) 10/05/2014 Active BALSALAZIDE 750 mg 3 cap(s) orally 3 times a day Active Cholestyramine 4 G/5 G 1 PACKET ORALLY QDAY *Please review and pick correct strength-formulati on from [employer] options. If intended option is not shown, discontinue and re-order from Quick Search* Active SIMVASTATIN 20 mg 1 tab(s) orally once a day (at bedtime) Active Balsalazide Disodium 750 MG 3 cap(s) orally 3 times a day Active LEVOTHYROXINE 88 mcg (0.088 mg) 1 tab(s) orally once a day Active azaTHIOprine 50 MG 1.5 tab(s) orally once a day 10/05/2014 Active MULTIVITAMIN 1 po once a day A ctive Probiotic Formula 1-250 BILLION-MG 1 cap(s) orally once a day Active VITAMIN D3 5000 intl units 1 cap(s) orally once a day Active Multivitamin - 1 po once a day Active CHOLESTYRAMINE 4 g/5 g 1 packet orally Qday Active Cetirizine HCl 10 MG 1 tab(s) orally once a day; Duration: 30 day(s) 10/05/2014 Active Patanase 665 MCG/INH 2 SPRAY(S) INTRANASALLY 2 TIMES A DAY; Duration: 90 DAY(S) *Please review and pick correct strength-formulati on from [employer] options. If intended option is not shown, discontinue and re-order from Quick Search* 10/05/2014 Active Immunizations Vaccine Route Administration Date Status Comme nts Influenza Unknown 10/05/2014 Administered NOC Pneumovax 23 Unknown 07/27/2008 Administered Problems Problem Type SNOMED Code ICD Code Onset Dates Problem Status W/U Status Risk Notes Problem Chronic allergic conjunctivitis (96235645) Chronic allergic conjunctivitis NOS (372.14) Active confirmed Problem Allergic rhinitis due to allergen (18567366) Allergic rhinitis due to allergen (477.8) Active confirmed Problem Elevated blood pressure reading without diagnosis of hypertension (952356408) Elevated blood pressure reading without diagnosis of hypertension (796.2) Active confirmed Problem Allergy to sulfonamides (77574088) HX-SULFONAMIDES ALLERGY (V14.2) Active confirmed Problem Allergy to insect allergen (491698800) Allergy to insects and arachnids (V15.06) Active confirmed Plan Of Treatment No Information Insurance Providers Payer Name Payer Address Payer Phone Subscriber Number Group Number Insured Name Patient Relationship to Insured Coverage Start Date Coverage End Date [employer] (Medicare) Attention Claims [address] [place] [address] [id number] Danielle Dial Self - patient is the insured for Life [address] [place] [address] [phone] [id number] Billy Dial Spouse - patient is the spouse of the insured Medical (General) History Medical History History ICD Code Breast Cancer, s/p XRT Ulcerative colitis Hypothyroidism 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
--- OUTSIDE RECORDS SUMMARY | 2025-03-02 16:56 | XMS_ITS | Clinical Summary ---
Author Organization [facility] Address [address] [place] [id number] Care Team Providers Care Perishable Freight Inspector Name Role Phone Unavailable Primary Care Provider Unavailabl e Social History Tobacco Use Types Packs/Day Years Used Date Smoking Tobacco: Never Assessed Comments Unknown Sex and Gender Information Value Date Recorded Sex Assigned at Not on file Legal Sex Female 7:53 PM CDT Gender Identity Not on file Sexual Orientation Not on file Plan of Treatment Health Maintenance Due Date Last Done Comments DTaP, Tdap and Td Vaccines ( 1 - Tdap) 1962 Pneumococcal Vaccine: 50+ Ye ars (1 of 1 - PCV) 1993 Zoster Vaccines (1 of 2) 1993 Dexa Scan (General) 2008 RSV Immunization or 60+ Years (1 - 1-dose 75+ series) 2018 COVID-19 Vaccine (2023-2 5 season) 2025 Influenza Adult (#1) 2025 Meningococcal B Vaccine Aged Out No l onger eligible based on patient's age to complete this topic Meningococcal Vaccine Aged Out No obdulio caesar eligible based on patient's age to complete this topic RSV Immunizations Under 20 Months Aged Out No longer eligible based on patient's age to complete this topic
--- OUTSIDE RECORDS SUMMARY | 2025-03-02 16:56 | XMS_ITS | Clinical Summary ---
Author Organization [facility] Address [address] [place] [address] Phone Care Team Providers Care Digital Marketing Associate Name Role Phone Unavailable Primary Care Provider Unavailabl e Social History Tobacco Use Types Packs/Day Years Used Date Smoking Tobacco: Never Assessed Comments Unknown Sex and Gender Information Value Date Recorded Sex Assigned at Not on file Legal Sex Female 8:57 PM CDT Gender Identity Not on file Sexual Orientation Not on file Plan of Treatment Not on file
[2025-03-02 17:04] VITALS: BP 163/93; PULSE 78; RESP 16; TEMP 36.7; O2SAT 98
--- OUTSIDE RECORDS SUMMARY | 2025-03-02 17:19 | XMS_ITS | Clinical Summary ---
Author Organization [facility] Address [address] [place] [address] Phone Care Team Providers Care Senior Cognos Developer Name Role Phone Unavailable Primary Care Provider [...]
--- OUTSIDE RECORDS SUMMARY | 2025-03-02 17:19 | XMS_ITS | Clinical Summary ---
Author Organization [facility] Address [address] [place] [id number] Care Team Providers Care [place] Name Role Phone Unavailable Primary Care Provider [...]
[2025-03-02 19:00] LABS: Estimated CRCL calculation 62 ml/min; Estimated Glomerular Filt Rate > 60
--- NOTE | 2025-03-02 20:06 | ED.FALL ---
HPI - Fall General Chief Complaint: Fall Stated Complaint: fall Time Seen by Provider: 03/02/25 17:02 History of Present Illness HPI Narrative: Patient is an 79-year-old female who presents ER after a fall at home. She is walking towards the bathroom she tripped and fell striking her face on the ground. No loss of consciousness. She is not on any blood thinning medications. She does have swelling over the bridge of her nose and her forehead. She is able to breathe out of her nose without issue and has had no nose bleeding. No numbness or tingling of the arms or legs. Mild pain to the right hand over the thenar eminence and also pain to the left knee from falling forwards. Related Data Home Medications ?Medication ?Instructions ?Recorded ?Confirmed ?Last Taken ?Type [id number] 1 tablet PO DAILY 03/26/20 08/24/24 01/15/22 History tablet (Multivitamin 50 Plus tablet) acetaminophen 650 mg 650 mg PO Q12H 04/19/20 08/24/24 01/15/22 History tablet,extended release (Tylenol Arthritis Pain) lactase 9,000 unit tablet 9,000 unit PO DAILY 04/19/20 08/24/24 01/15/22 History omeprazole 20 mg capsule,delayed 20 mg PO EVERY OTHER DAY 04/19/20 08/24/24 01/15/22 History release biotin 1,000 mcg chewable tablet 1,000 mcg PO DAILY 05/30/20 08/24/24 01/15/22 History calcium carbonate 600 mg PO BID 05/30/20 08/24/24 01/15/22 History cholecalciferol (vitamin D3) 25 25 mcg PO DAILY 05/30/20 08/24/24 01/15/22 History mcg (1,000 unit) capsule fluticasone propionate 50 2 spray intranasal DAILY 05/30/20 08/24/24 01/15/22 History mcg/actuation nasal spray,suspension (Allergy Relief (fluticasone)) loratadine 10 mg tablet 10 mg PO DAILY 05/30/20 08/24/24 01/15/22 History magnesium 250 mg tablet 250 mg PO DAILY 05/24/23 08/24/24 Unknown History Allergies Allergy/AdvReac Type Severity Reaction Status Date / Time oxytetracycline Allergy Severe FACIAL Verified 03/02/25 16:14 SWELLING Sulfa (Sulfonamide Allergy Severe Swelling Verified 03/02/25 16:14 Antibiotics) tetracycline Allergy Severe FACIAL Verified 03/02/25 16:14 SWELLING vancomycin Allergy Severe Swelling Verified 03/02/25 16:14 azithromycin Allergy Intermediate Confusion Verified 03/02/25 16:14 Review of Systems Review of Systems: All systems reviewed & are unremarkable except as noted in HPI and below Constitutional: Constitutional: Reports no additional constitutional complaints ENT: Reports system reviewed and no additional complaints, except as documented Cardiovascular: Cardiovascular: Reports no additional cardiovascular complaints Respiratory: Respiratory: Reports no additional respiratory complaints Musculoskeletal: Musculoskeletal: Reports no additional musculoskeletal complaints Neurologic: Reports system reviewed and no additional complaints, except as documented [facility] Past Medical History Medical History Grieving Influenza A Bertolotti's syndrome Congestion of nasal sinus Weight gain Degenerative joint disease of knee Left knee pain Osteopenia Colonic polyp GERD (gastroesophageal reflux disease) Dermatitis Arthritis of left knee Postmenopausal Lichen planus Esophageal stricture Breast cancer Hyperlipidemia due to dietary fat intake Hypothyroidism, unspecified Ulcerative colitis Surgical History Surgical History H/O arthroscopic knee surgery Jun 12, 2020 History of dental surgery August 06, 2020 History of elbow replacement H/O section Family History Family History Sibling Family history of multiple sclerosis Family history of alcoholism Family history of Parkinson's disease Father Family history of malignant neoplasm, Onset Age: 73 Mother Family history of Alzheimer's disease, Onset Age: 83 Other Depression Diabetes mellitus Family history of neuropathy History of malignant neoplasm of breast Social History Social History Smoking status: Never smoker Second hand tobacco smoke exposure: No Alcohol intake: current Drinks per week: 14 Substance use type: does not use Do You Feel Safe in your Home?: Yes Lack of Transportation: No Lack of Food: Never True Current Housing: I Have Housing Concerned About Future Housing: No Difficulty Paying Gas/Electric Bills: No Difficulty Paying for Meds: No Currently Unemployed: No Education: Master's Degree or Higher Difficulty w/ Childcare or Family Care: No Living arrangements: other Occupation/Education: retired Gender identity (if verbalized by the patient): Female Exam Narrative: GENERAL: Well-appearing, well-nourished, and in no acute distress. HEAD: Normocephalic, contusion and soft tissue swelling of the forehead and bridge of nose with ecchymosis around the eyes. EYES: PERRL and EOMI. ENT: Mucous membranes moist. CHEST: Clear to auscultation. No respiratory distress. HEART: Regular rate and rhythm. Normal peripheral pulses. EXTREMITIES: Normal range of motion. No edema. SKIN: Warm, dry, no rash. NEURO: Alert and oriented x3. PSYCH: Normal mood and affect. Course Course Emergency Course: Patient resting comfortably. Informed of imaging results. Appropriate for discharge home. Contusion only noted injury to the head. Vital Signs Vital signs: Vital Signs Temperature 98.0 F 03/02/25 17:04 Pulse Rate 78 03/02/25 17:04 Respiratory Rate 16 03/02/25 17:04 Blood Pressure 163/93 H 03/02/25 17:04 Pulse Oximetry 98 03/02/25 17:04 Temperature 98.0 F 03/02/25 17:04 Pulse Rate 78 03/02/25 17:04 Respiratory Rate 16 03/02/25 17:04 Blood Pressure 163/93 H 03/02/25 17:04 Pulse Oximetry 98 03/02/25 17:04 MDM - Fall Lab Data 03/02/25 18:57 Labs: Lab Results 03/02/25 Range/Units 18:57 Creatinine 0.60 L (0.7-1.2) mg/dL Estim Creat Clear Calc 62 ml/min Estimated GFR > 60 (59 - ) Imaging Data Radiologist's impression: ITS Impressions Head CT 03/02/25 17:22 Impression: Posttraumatic soft tissue changes. No intracranial hemorrhage or infarct. Basilar artery aneurysm is not excluded. CTA is recommended to assess. Cervical Spine CT 03/02/25 17:37 IMPRESSION: No acute fracture or subluxation. Diffuse degenerative changes. All CT scans at this facility are performed using low dose modulation techniques as appropriate to perform exam including the following: automated exposure control; adjustment of the mA and/or kV according to patient size (this includes techniques or standardized protocols for targeted exams where does is matched to indication/reason for exam; i.e. extremities or head); use of iterative reconstruction technique). Knee X-Ray 03/02/25 18:27 IMPRESSION: Radiographic examination of the left knee demonstrates no acute fracture or dislocation. Hand X-Ray 03/02/25 18:28 IMPRESSION: Radiographic examination of the right hand demonstrates no acute fracture or dislocation. Head/Neck CTA 03/02/25 19:18 IMPRESSION: No hemodynamically significant stenosis is noted of the cervical and intracranial arterial vasculature. Discharge Plan Discharge Clinical Impression: Contusion of face, Hand pain, Knee pain Patient Disposition: Home Condition: Stable Instructions: Contusion in Adults (ED), Knee Pain (ED) Additional Instructions: Return the ER if you suffered a new injury, you have chest pain shortness of breath, you become confused, or have additional concerns. Patient Language: Serbian Prescriptions: No Action acetaminophen [Tylenol Arthritis Pain] 650 mg tablet extended release 650 mg PO Q12H omeprazole 20 mg capsule,delayed release(DR/EC) 20 mg PO EVERY OTHER DAY lactase 9,000 unit tablet 9,000 unit PO DAILY Rx Instructions: administer with meals and/or snacks magnesium 250 mg tablet 250 mg PO DAILY Multivitamin 50 Plus Tablet 1 tablet PO DAILY biotin 1,000 mcg tablet,chewable 1,000 mcg PO DAILY calcium carbonate 600 mg calcium (1,500 mg) tablet 600 mg PO BID cholecalciferol (vitamin D3) 25 mcg (1,000 unit) capsule 25 mcg PO DAILY loratadine 10 mg tablet 10 mg PO DAILY fluticasone propionate [Allergy Relief (fluticasone)] 50 mcg/actuation spray,suspension 2 spray intranasal DAILY Rx Instructions: administer into each nostril azathioprine 50 mg tablet See Rx Instructions .ROUTE .COMPLEX Qty: 90 3RF Dose Instruction: TAKE 1 TABLET DAILY Rx Instructions: TAKE 1 TABLET DAILY simvastatin 10 mg tablet See Rx Instructions .ROUTE .COMPLEX Qty: 90 3RF Dose Instruction: TAKE 1 TABLET AT BEDTIME Rx Instructions: TAKE 1 TABLET AT BEDTIME balsalazide 750 mg capsule See Rx Instructions .ROUTE .COMPLEX Qty: 540 3RF Dose Instruction: TAKE 3 CAPSULES (2250 MG) TWICE A DAY Rx Instructions: TAKE 3 CAPSULES (2250 MG) TWICE A DAY levothyroxine 75 mcg tablet See Rx Instructions .ROUTE .COMPLEX Qty: 90 0RF Dose Instruction: TAKE 1 TABLET DAILY Rx Instructions: TAKE 1 TABLET DAILY sertraline 50 mg tablet 50 mg PO DAILY Qty: 90 1RF Rx Instructions: DUE FOR APPOINTMENT IN FEBRUARY Follow-up/Referrals: Markie Brewster DO [Primary Care Provider, Internal Medicine] - 1 Week
[2025-03-02 20:52] VITALS: BP 150/78; PULSE 88; RESP 16; O2SAT 99
== END 2025-03-02 20:53 | disposition home or self-care (01) ==
PROVIDERS: Emergency Provider Emergency Medicine; PCP Internal Medicine
DX: S00.83XA Contusion of other part of head, initial encounter (principal); S00.33XA Contusion of nose, initial encounter; S69.91XA Unspecified injury of right wrist, hand and finger(s), initial encounter; S69.92XA Unspecified injury of left wrist, hand and finger(s), initial encounter; E03.9 Hypothyroidism, unspecified; E78.5 Hyperlipidemia, unspecified; M17.12 Unilateral primary osteoarthritis, left knee; M85.80 Other specified disorders of bone density and structure, unspecified site; K51.90 Ulcerative colitis, unspecified, without complications; K21.9 Gastro-esophageal reflux disease without esophagitis; Q76.49 Other congenital malformations of spine, not associated with scoliosis; Z86.0100 Personal history of colon polyps, unspecified; Z85.3 Personal history of malignant neoplasm of breast; Z96.629 Presence of unspecified artificial elbow joint; W01.0XXA Fall on same level from slipping, tripping and stumbling without subsequent striking against object, initial encounter
CPT/HCPCS: 70450; 70496; 70498; 72125; 73130; 73562; 99284; Q9967

== ENCOUNTER 2025-03-22 14:50 | Outpatient (CLI) | payer MEDICARE, OTHER, SELFPAY ==
--- OUTSIDE RECORDS SUMMARY | 2012-10-03 05:00 | XMS_ITS | Continuity of Care Document ---
Author Organization [facility] Address [address] [address] [place] [address] Phone Care Team Providers Care Surgery Scheduler Name Role Phone Unavailable Unavailable Unavailable Allergies, Adverse Reactions, Alerts Substance Reaction Status Criticality BIOFLAVONOIDS Active No Information ASCORBATE CALCIUM Active No Informa tion PRESERVATIVE FREE rash, hives, to all Active No Information GENTAMICIN SULFATE rash, hives, to all micins Active No Information sodium chloride rash, hives, to all Active No In formation Sulfa (Sulfonamide Antibiotics) face swelling Active No Information Medications Medication Instructions Dosage Effective Dates (start - stop) Status Comments ranitidine 150 mg tablet takes one pill po at hs - Active flaxseed oil 1,030 mg capsule qd - Active magnesium 300 mg capsule take 1 Tablet b y Oral route every day 1 Tablet - Active Fish Oil Concentrate 1,000 mg capsule take 1 Capsule by Oral route every day 1 Capsule - Active Prilosec 20 mg capsule,delayed release take 1 Capsule (20MG) by Oral route every day before breakfast 20 MG - Active Levothyroxine Sodium 0.175 mgTABLET Use as directed - Active Zocor 20 mg Tab Take 1 tablet by mouth daily - Active Motrin IB 200 mg Tab Use as directed - Active Aspirin Low Dose 81 mg Tab, Delayed Release Take 1 tablet by mouth daily - Active Tavist ND 10 mg Tab Take 1 tablet by mouth daily - Active Vitamin C 500 mg Tab Take one tablet by mouth daily - Active VITAMIN E 400 UNITCAPSULE Take one table t by mouth daily - Active Os-Matty 500 + D 500 mg (1,250 mg)-200 unit Tab 1 tablet by mouth three times a day - Active Centrum Silver Tab Take 1 tablet by mouth daily - Active FOLIC ACID (unknown strength) qd Not Available - Active MiralaxBisacodylMagCit Colon Prep Use as directed - No Longer Active omeprazole 20 mg Cap, Delayed Release Take one tablet by mouth daily - No Longer Active Femara 2.5 mg Tab Take 1 tablet by mouth daily - No Longer Active Procedures Procedure Date Ugi Endo; W/insrt Guide Wire Ugi Endo; W/bx 1/mx Colorectal Ca Screen Hi Risk I 13 Level Iv-surg Path Gross/micro 13 0529F Colonoscopy Flex; Dx (sep Pro) 07 Advance Directives Directive Yes / No Effective Date File Name Resuscitation Not Answered N/A N/A Life Support Not Answered N/A N/A Intubation Not Answered N/A N/A Antibiotics Not Answered N/A N/A IV Fluid Support Not Answered N/A N/A Tube Feed Not Answered N/A N/A Other Directive N/A N/A WARNING:The information contained in this section is historical and is provided for information only and does not constitute a legal document or any assurance that the information is still accurate. Please verify the information with the danielson of the legal document before using it for clinical purposes. Encounters Encounter Description Practice Location Reason(s) For Visit Diagnoses Date Provider Providers Copied on Encounter [facility] [address] [address] [address], [place], [id number], [place] tel:[phone] [place] [facility] Diverticulosi s Of ColonHiatal HerniaEsoph Stricture/masha atzki RingColon Cancer ScreeningHiat al HerniaEsoph Stricture/masha atzki RingPersonal History Colon Polyps 0-201 3 No Information Referring Provider: [place], [address] [place], [address]. tel:[phone] [facility] [place], [address] [address], [place], [id number], tel:[phone] [facility] No Information 9-201 2 No Information Referring Provider: Referral Self, USE FOR SELF REFERRALS. [facility] [place], [address] [address], [place], [id number], tel:[phone] [place] [facility] Colon Cancer ScreeningPers onal History Colon Polyps 2-200 7 No Information Referring Provider: [place], [address] [place], [address]. tel:[phone] Family History Family Member Type Diagnosis Age At Onset No Information Payers Payer name Insurance type Covered constitution party ID Authoriza tion(s) Medicare NGS MB [id number] [facility] [employer] [facility] [id number] Social History Type Description Quantity Date Captured Comments Alcohol Use Details Unknown Caffeine Use Details Unknown Tobacco Use Status No Information Smoking Status No Information Sex Female Chief Complaint And Reason For Visit No Information Reason For Referral Reason For Referral No Information History Of Present Illness Encounter Date Complaint History Of Prese nt Illness No Information Functional Status Date Functional Assessmen t No Information Instructions Date Instruction Additional Infor mation No Information Assessments Type Assessment Date No Information Patient Care Teams Name Effective Dates (start - stop) Status Members No Information
--- OUTSIDE RECORDS SUMMARY | 2023-10-30 15:30 | XMS_ITS ---
Author Organization [facility] [place] ([phone]) Address [address] [place] [address] Care Team Providers Care Coil Assembler Name Role Phone Markie Brewster Primary Care Provider Unavailab le Joyce, Gayla Unavailable [phone] ZZ-Migration, Provider Unavailable Unavailab le Allergies Allergen (clinical drug ingredient) Drug/Non Drug Allergy documented on EMR Reaction Allergy Type Onset Date Status OXYTETRACYCLINE/PH ENAZOPYRIDINE/SULF AMETHIZOL (uncoded) facial swelling Allergy Active Substance with sulfonamide structure and antibacterial mechanism of action (substance) SULFA (uncoded) rash/fever Allergy Active [facility] Con[facility] Encounter Medications Medication SIG (Take, Route, Frequency, Duration) Notes Start Date End Date Status Azelastine HCl 137 MCG/SPRAY 2 spray(s) intranasally 2 times a day; Duration: 30 day(s) 10/11/2014 Active Cetirizine HCl 10 MG 1 tab(s) orally once a day; Duration: 30 day(s) 10/05/2014 Active Patanase 665 MCG/INH 2 SPRAY(S) INTRANASALLY 2 TIMES A DAY; Duration: 90 DAY(S) *Please review and pick correct strength-formulati on from [facility] options. If intended option is not shown, discontinue and re-order from Quick Search* 10/05/2014 Active Levothyroxine Sodium 88 MCG 1 tab(s) orally once a day Active Cholestyramine 4 G/5 G 1 PACKET ORALLY QDAY *Please review and pick correct strength-formulati on from [facility] options. If intended option is not shown, discontinue and re-order from Quick Search* Active Vitamin D3 125 MCG (5000 UT) 1 cap(s) orally once a day Active Simvastatin 20 MG 1 tab(s) orally once a day (at bedtime) Active azaTHIOprine 50 MG 1.5 tab(s) orally once a day 10/05/2014 Active Probiotic Formula 1-250 BILLION-MG 1 cap(s) orally once a day Active Multivitamin - 1 po once a day Active Balsalazide Disodium 750 MG 3 cap(s) orally 3 times a day Active Encounters Encounter Location Date Provider Diagnosis [facility] - [address] [address] 10/30/2023 Provider GREG-Shailesh Allergic rhinitis due to allergen 477.8 Assessments Encounter Date Diagnosis (ICD Code) Assessment Notes Treatment Notes Treatment Clinical Notes Section Notes 10/30/2023 Allergic rhinitis due to allergen (ICD9-CM - 477.8) Plan Of Treatment Medication Medication Name Sig Start Date Stop Date Notes Azelastine HCl 137 MCG/SPRAY 2 spray(s) intranasally 2 times a day; Duration: 30 day(s) 10/11/2014 Cetirizine HCl 10 MG 1 tab(s) orally onc e a day; Duration: 30 day(s) 10/05/2014 Patanase 665 MCG/INH 2 SPRAY(S) INTRANASALLY 2 TIMES A DAY; Duration: 90 DAY(S) 10/05/2014 *Please review and pick correct strength-formulation from [facility] options. If intended option is not shown, discontinue and re-order from Quick Search* Progress Notes * Danielle DIAL ADOB: 4 (79 yo F)Acc No.[id number]:10/30/2023 Patient: Thalia Danielle LAU Provider: Reyes Cash :1945 A ge:78 Y S ex:Female Date:10/30/2023 Address:[address] [place], [place] [address] Pcp:Markie Brewster Subjective: * Chief Complaints: * 1 . [facility] To [facility] Conversion Encounter. * Medical History: * Medications: T aking Balsalazide Disodium 750 MG Capsule 3 cap(s) orally 3 times a day , Taking azaTHIOprine 50 MG Tablet 1.5 tab(s) orally once a day , Taking Probiotic Formula 1-250 BILLION-MG Capsule 1 cap(s) orally once a day , Taking Multivitamin - Tablet 1 po once a day , Taking Vitamin D3 125 MCG (5000 UT) Capsule 1 cap(s) orally once a day , Taking Simvastatin 20 MG Tablet 1 tab(s) orally once a day (at bedtime) , Taking Levothyroxine Sodium 88 MCG Tablet 1 tab(s) orally once a day , Taking Cholestyramine 4 G/5 G POWDER FOR RECONSTITUTION 1 PACKET ORALLY QDAY , Notes to Pharmacist: *Please review and pick correct strength-formulation from [employer] options. If intended option is not shown, discontinue and re-order from Quick Search* * Allergies: S ULFA: rash/fever - Allergy, OXYTETRACYCLINE/PHENAZOPYRIDINE/SULFAMETHIZOL: facial swelling - Allergy. Objective: * Vitals: Assessment: * Assessment: 1. A llergic rhinitis due to allergen - 477.8 (Primary) Plan: * Treatment: 2. O thers Start Azelastine HCl Solution, 137 MCG/SPRAY, 2 spray(s), intranasally, 2 times a day, 30 day(s), 3, Refills 5. * Billing Information: * Visit Code: * Procedure Codes: * Electronic signature of Chinyere GARZA-Migration on 03/22/2025 at 08:40 PM VEHICLE [employer]ASING AND RENTAL MANAGER Sign off status: Pending * Provider: Reyes thomas Migration Date: 0 10/30/2023 Generated for Eugenia oneill/Eduardo/Yue on: 05/22/2024 08:40 PM VEHICLE LEASING AND RENTAL MANAGER
--- NOTE | 2025-03-22 14:54 | ECHO_ITS ---
Patient Info Name: Danielle Dial Age: 79 years : 1945 Gender: Female Ht: 64 in Wt: 160 lbs BSA: 1.83 m2 HR: 71 bpm BP: 134 / 87 mmHg Technical Quality: Fair Exam Date: 03/22/2025 3:02 PM Patient Status: O Admit Date: 03/22/2025 Exam Type: CA echo doppler w bubble study Complete two-dimensional, color flow and Doppler transthoracic echocardiogram is performed with agitated saline. Kerrick Kleaner Operator: Zaria Vaughn Attending Provider: Belén Alejandre [facility] Contrast/Agitated Saline Contrast/Ag. Saline: Agitated Saline Amount: 30.00 ml New IV Access: Right and Dorsum of Hand Site Condition: IV removed, Site dressing applied and No extravasation Summary 1. Left ventricular chamber dimension is normal. 2. Left ventricular systolic function is normal, estimated at 65-70. 3. There is mild concentric increased left ventricular wall thickness. 4. The left ventricular diastolic function is grade I diastolic dysfunction. 5. E/e' 12 is mildly elevated. 6. Left atrial chamber dimension is mildly enlarged. Left Ventricle E/e' 12 is mildly elevated. Left ventricular chamber dimension is normal. Left ventricular systolic function is normal, estimated at 65-70. There is mild concentric increased left ventricular wall thickness. The left ventricular diastolic function is grade I diastolic dysfunction. Right Ventricle Right ventricular chamber dimension is normal. Right ventricular systolic function is normal. Left Atria Left atrial chamber dimension is mildly enlarged. Right Atria Right atrial chamber dimension is normal. Atrial Septum Interatrial septum not well visualized by 2D and agitated saline imaging. Agitated saline injection with and without valsalva maneuver opacified right side cardiac chambers without shunt to left side cardiac chambers. Aortic Valve The aortic valve is trileaflet. There is no aortic valve stenosis. There is no aortic valve regurgitation. Pulmonic Valve There is no pulmonic regurgitation. Mitral Valve The mitral valve has mildly calcified leaflets. There is no mitral valve stenosis. There is moderate mitral valve regurgitation. Tricuspid Valve There is no tricuspid valve regurgitation. No pulmonary hypertension, estimated pulmonary arterial systolic pressure is 27 mmHg. Pericardium/Pleural There is no pericardial effusion. Inferior Vena Cava Normal inferior vena cava with >50% collapse upon inspiration consistent with normal right atrial pressure, 5 mmHg. Aorta The aortic root size at the sinus of Valsalva is normal. Left Ventricular Outflow Tract Name Value Normal LVOT 2D LVOT Diameter 2.0 cm LVOT Doppler LVOT Peak Velocity 111 cm/s LVOT Peak Gradient 5 mmHg LVOT Mean Gradient 3 mmHg LVOT VTI 23 cm LVOT VTI/AV VTI Ratio 0.8 LVOT Stroke Volume 71 ml LVOT CO 4.9 l/min LVOT CI 2.7 l/min/m2 Pulmonic Valve Name Value Normal RVOT Doppler RVOT Peak Velocity 75 cm/s RVOT Peak Gradient 2 mmHg PV Doppler PV Peak Velocity 82 cm/s PV Peak Gradient 3 mmHg Mitral Valve Name Value Normal MV Diastolic Function MV E Peak Velocity 86 cm/s MV A Peak Velocity 99 cm/s MV E/A 0.9 MV Decel Time (PW) 217 ms Tricuspid Valve Name Value Normal TV Regurgitation Doppler TR Peak Velocity 233 cm/s TR Peak Gradient 21 mmHg Estimated PAP/RSVP RA Pressure 5 mmHg <=5 PA Systolic Pressure 27 mmHg <36 RV Systolic Pressure 27 mmHg <36 Aorta Name Value Normal Ascending Aorta Ao Root Diameter (MM) 2.8 cm Ao Root Diam Index (MM) 1.5 cm/m2 Aortic Valve Name Value Normal AV Doppler AV Peak Velocity 143 cm/s AV Peak Gradient 8 mmHg AV Mean Gradient 5 mmHg AV VTI 30 cm AV Area (Cont Eq VTI) 2.3 cm2 >=3.0 AV Area (Cont Eq Andre) 2.4 cm2 AV DI (Andre) 0.78 AV Regurgitation 2D LVOT Area 3.1 cm2 Ventricles Name Value Normal LV Dimensions 2D/MM IVS Diastolic Thickness (2D) 1.0 cm 0.6-1.0 IVS Diastole Thickness (MM) 0.8 cm 0.6-0.9 LVID Diastole (2D) 3.8 cm 3.8-5.2 LVID Diastole (MM) 4.8 cm 3.8-5.2 LVIW Diastolic Thickness (2D) 0.7 cm 0.6-0.9 LVIW Diastolic Thickness (MM) 0.7 cm 0.6-0.9 LVID Systole (2D) 2.6 cm 2.2-3.5 LVID Systole (MM) 2.8 cm 2.2-3.5 LVOT Diameter 2.0 cm LV Mass (2D Cubed) 95.49 g 67.00-162.00 LV Mass Index (2D Cubed) 52 g/m2 43-95 Relative Wall Thickness (2D) 0.37 <=0.42 LV Mass (MM Cubed) 113.11 g 67.00-162.00 LV Mass Index (MM Cubed) 62 g/m2 43-95 Relative Wall Thickness (MM) 0.28 LV Fractional Shortening/Ejection Fraction 2D/MM LV Fractional Shortening (2D) 32 % 27-45 LV Fractional Shortening (MM) 41 % 27-45 LV EF (MM Teichholz) 72 % LV EF (2D Teichholz) 61 % LV Diastolic Volume (4C MOD) 69 ml LV EF (4C MOD) 66 % LV Diastolic Volume (2C MOD) 69 ml LV EF (2C MOD) 68 % LV Diastolic Volume (BP MOD) 70 ml 46-106 LV Diastolic Volume Index (BP MOD) 38 ml/m2 29-61 LV Systolic Volume (BP MOD) 23 ml 14-42 LV Systolic Volume Index (BP MOD) 13 ml/m2 8-24 LV EF (BP MOD) 67 % 54-74 LV Diastolic Length (4C) 7.7 cm LV Systolic Length (4C) 6.4 cm LV Stroke Volume (4C MOD) 45 ml Atria Name Value Normal LA Dimensions LA Dimension (MM) 3.1 cm 2.7-3.8 LA Volume (4C A-L) 60 ml LA Volume (BP A-L) 70 ml RA Dimensions RA Systolic Major Culver Length (4C) 5.3 cm 2.2-2.8 RA Area (4C) 12.9 cm2 <=18.0 Report Signatures
--- OUTSIDE RECORDS SUMMARY | 2025-03-22 20:40 | XMS_ITS | Clinical Summary ---
Author Organization [facility] Address [address] [place] [id number] Care Team Providers Care Marble Cleaner Name Role Phone Unavailable Primary Care Provider [...] - 1-dose 75+ series) 2018 COVID-19 Vaccine (2024-2 6 season) 2025 Influenza Adult (#1) 2025 Hepatitis A Vaccines Aged Out No long er eligible based on patient's age to complete this topic Meningococcal B Vaccine Aged Out No l onger eligible based on patient's age to complete this topic Meningococcal Vaccine Aged Out No obdulio caesar eligible based on patient's age to complete this topic RSV Immunizations Under 20 Months Aged Out No longer eligible based on patient's age to complete this topic
--- OUTSIDE RECORDS SUMMARY | 2025-03-22 20:40 | XMS_ITS | Clinical Summary ---
Author Organization [facility] Address [address] [place] [address] Phone Care Team Providers Care Theatre Arts Professor Name Role Phone Unavailable Primary Care Provider [...]
--- OUTSIDE RECORDS SUMMARY | 2025-03-22 20:41 | XMS_ITS | Patient Health Record ---
Author Organization [facility] [employer] ([address]) Address [address] [facility] [address] [place] [address] Care Team Providers Care Claims Vice President Name Role Phone Markie Brewster Primary Care Provider Gayla Mondragon Unavailable [phone] Allergies Allergen (clinical drug ingredient) Drug/Non Drug [...] review and pick correct strength-formulati on from [employer] options. If intended option is not shown, [...] review and pick correct strength-formulati on from [employer] options. If intended option is not shown, discontinue and re-order from Quick Search* 10/05/2014 Active Immunizations Vaccine Route Administration Date Status Comme nts NOC Pneumovax 23 Unknown 07/27/2008 Administered Influenza Unknown 10/05/2014 Administered Problems Problem Type SNOMED Code ICD Code Onset Dates Problem Status W/U Status Risk Notes Problem Chronic allergic conjunctivitis (95997533) Chronic allergic conjunctivitis NOS (372.14) Active confirmed Problem Allergic rhinitis due to allergen (21412281) Allergic rhinitis due to allergen (477.8) Active confirmed Problem Elevated blood pressure reading without diagnosis of hypertension (834391442) Elevated blood pressure reading without diagnosis of hypertension (796.2) Active confirmed Problem Allergy to sulfonamides (94804787) HX-SULFONAMIDES ALLERGY (V14.2) Active confirmed Problem Allergy to insect allergen (407566258) Allergy to insects and arachnids (V15.06) Active confirmed Plan Of Treatment No Information Insurance Providers Payer Name Payer Address Payer Phone Subscriber Number Group Number Insured Name Patient Relationship to Insured Coverage Start Date Coverage End Date [employer] (Medicare) Attention Claims [address] [place] [address] [id number] Danielle Dial Self - patient is the insured for Life [address] [place] [address] [phone] [id number] Billy Dial Spouse - patient is the spouse of the insured Medical (General) History Medical History History ICD Code Breast Cancer, s/p XRT Ulcerative colitis Hypothyroidism 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
== END 2025-03-22 14:51 | disposition home or self-care (01) ==
LOC: ANHCARD 14:52
PROVIDERS: PCP Internal Medicine; Visit Provider Clinical Nurse Specialist
DX: R93.1 Abnormal findings on diagnostic imaging of heart and coronary circulation (principal); Z86.73 Personal history of transient ischemic attack (TIA), and cerebral infarction without residual deficits
CPT/HCPCS: 93306; 96375

== ENCOUNTER 2025-04-06 08:07 | Outpatient (CLI) | payer MEDICARE, OTHER, SELFPAY ==
--- OUTSIDE RECORDS SUMMARY | 2023-10-30 15:30 | XMS_ITS ---
Author Organization [facility] [place] ([address]) Address [address] [place] [address] Care Team Providers Care Airline Reservation Agent Name Role Phone Markie Brewster Primary Care Provider Unavailab le Joyce, Gayla Unavailable [phone] ZZ-Migration, Provider Unavailable Unavailab le Allergies Allergen (clinical drug ingredient) Drug/Non Drug Allergy documented on EMR Reaction Allergy Type Onset Date Status OXYTETRACYCLINE/PH ENAZOPYRIDINE/SULF AMETHIZOL (uncoded) facial swelling Allergy Active Substance with sulfonamide structure and antibacterial mechanism of action (substance) SULFA (uncoded) rash/fever Allergy Active [facility]IT [facility] Conversion Encounter Medications Medication SIG (Take, [...] review and pick correct [facility]ati [facility]. If intended option is not shown, discontinue and re-order from Quick Search* 10/05/2014 Active Levothyroxine Sodium 88 MCG 1 tab(s) orally once a day Active Cholestyramine 4 G/5 G 1 PACKET ORALLY QDAY *Please review and pick correct strength[facility]ulati [facility]. If intended option is not [...] Active Encounters Encounter Location Date Provider Diagnosis [facility] - [address] [address] 10/30/2023 Provider GREG-Shailesh Allergic rhinitis due to [...] Danielle DIAL ADOB: 4 (79 yo F)Acc No.[id number]:10/30/2023 Patient: Thalia Danielle LAU Provider: Reyes Cash :1945 A ge:78 Y S ex:Female Date:10/30/2023 Address:[address] [place], [place] [address] Pcp:Markie Brewster Subjective: * Chief Complaints: * [...] *Please review and pick correct strength-formulation from [facility] options. If intended option is not shown, [...] * Electronic signature of Chinyere GARZA-Migration on 04/06/2025 at 08:10 AM [employer] Sign off status: Pending * Provider: Reyes thomas Migration Date: 0 10/30/2023 Generated for Eugenia oneill/Eduardo/Yue on: 06/06/2024 08:10 AM [employer]
--- NOTE | ~2025-04-06 | MR_ITS ---
EXAMINATION: MR brain/brain stem wo/w con DATE: 04/06/2025 08:57 INDICATION: Transient ischemic attack TECHNIQUE: Magnetic resonance imaging (MRI) of the brain and brainstem was performed without and with 15 mL Multihance intravenous contrast. Sequences included sagittal and axial T1-weighted SE, axial diffusion-weighted FS SE, axial T2*-weighted GRE, axial T2-weighted FLAIR, and axial T2-weighted FSE. Postcontrast axial and coronal T1-weighted SE was obtained. Apparent diffusion coefficient (ADC) maps were created. COMPARISON: Head CT and CT angiogram dated 03/02/2025 FINDINGS: There are no areas of restricted diffusion to suggest acute infarction. No intracranial hemorrhage or abnormal intracranial mass lesion. There are scattered areas of nonspecific increased T2-weighted signal intensity in the cerebral white matter, predominantly involving the deep and periventricular whi te matter. There are no intraparenchymal signal abnormalities seen on the other pulse sequences. The ventricles are symmetric and normal in size. There are no abnormal extra-axial fluid collections. Flow voids are seen in the cerebral arteries on the T2-weighted sequences consistent with their expected patency. Mild to moderate mucosal thickening scattered throughout the paranasal sinuses. Changes of bilateral intraocular lens replacement. Visualized orbits and soft tissues are otherwise unremarkable. Interval decrease in size of a now small anterior frontal scalp hematoma. There are no areas of abnormal intracranial enhancement on the post contrast images. IMPRESSION: 1. Normal aging brain with moderate scattered mesenteric cerebral and pontine white matter T2 hyperintensity consistent with chronic small vessel ischemic disease. No acute intracranial process or abnormally enhancing brain lesions. 2. Extensive sinus disease. Reviewed, dictated and finalized at location A. F CONTRACT OFFICER IMPRESSION: 1. Normal aging brain with moderate scattered mesenteric cerebral and pontine w juanita matter T2 hyperintensity consistent with chronic small vessel ischemic dis ease. No acute intracranial process or abnormally enhancing brain lesions. 2. Extensive sinus disease.
--- OUTSIDE RECORDS SUMMARY | 2025-04-06 08:10 | XMS_ITS | Patient Health Record ---
Author Organization [facility] [employer] ([address]) Address [address] [facility] [address] [place] [address] Care Team Providers Care Space Systems Operations Superintendent Name Role Phone Markie Brewster Primary Care Provider Gayla Mondragon Unavailable [phone] Allergies Allergen (clinical drug ingredient) Drug/Non Drug [...] review and pick correct strength-formulati on from [employer] options. If intended option is not shown, [...] review and pick correct strength-formulati on from [employer] options. If intended option is not shown, discontinue and re-order from Quick Search* 10/05/2014 Active Immunizations Vaccine Route Administration Date Status Comme nts NOC Pneumovax 23 Unknown 07/27/2008 Administered Influenza Unknown 10/05/2014 Administered Problems Problem Type SNOMED Code ICD Code Onset Dates Problem Status W/U Status Risk Notes Problem Chronic allergic conjunctivitis (74058018) Chronic allergic conjunctivitis NOS (372.14) Active confirmed Problem Allergic rhinitis due to allergen (43215416) Allergic rhinitis due to allergen (477.8) Active confirmed Problem Elevated blood pressure reading without diagnosis of hypertension (982946866) Elevated blood pressure reading without diagnosis of hypertension (796.2) Active confirmed Problem Allergy to sulfonamides (06394219) HX-SULFONAMIDES ALLERGY (V14.2) Active confirmed Problem Allergy to insect allergen (615555364) Allergy to insects and arachnids (V15.06) Active confirmed Plan Of Treatment No Information Insurance Providers Payer Name Payer Address Payer Phone Subscriber Number Group Number Insured Name Patient Relationship to Insured Coverage Start Date Coverage End Date [email or web address] (Medicare) Attention Claims [address] [place] [address] [id number] Danielle Dial Self - patient is the insured for Life [address] [place] [address] [phone] [id number] Billy Dial Spouse - patient is the spouse of the insured Medical (General) History Medical History History ICD Code Breast Cancer, s/p XRT Ulcerative colitis Hypothyroidism 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
--- OUTSIDE RECORDS SUMMARY | 2025-04-06 08:10 | XMS_ITS | Clinical Summary ---
Author Organization [facility] Address [address] [place] [address] Phone Care Team Providers Care Office Associate Name Role Phone Unavailable Primary Care [...]
--- OUTSIDE RECORDS SUMMARY | 2025-04-06 08:10 | XMS_ITS | Clinical Summary ---
Author Organization [facility] Address [address] [place] [id number] Care Team Providers Care Adult Neurologist Name Role Phone Unavailable Primary Care Provider [...]
== END 2025-04-06 08:08 | disposition home or self-care (01) ==
PROVIDERS: PCP Internal Medicine; Visit Provider Clinical Nurse Specialist
DX: J32.9 Chronic sinusitis, unspecified (principal); Z86.73 Personal history of transient ischemic attack (TIA), and cerebral infarction without residual deficits
CPT/HCPCS: 70553; A9577

== ENCOUNTER 2025-04-26 10:45 | Outpatient (RCR) | payer MEDICARE, OTHER, SELFPAY ==
--- NOTE | 2025-03-19 09:54 | PTOPEVAL1 ---
Assessment and note entered by Navneet Caceres Evaluation Information Assessment Status Evaluation ICD-10 Condition Codes (PT) Pain in low back M54.50,Pain in left knee M25.562, Repeated falls R29.6 Onset 03/02/25 Subjective Information Pt. reports that she experienced a fall on . She reports that she tripped while walking through her home. She states that she fell directly onto her face. She reports that she went to urgent care the same day. She underwent testing which revealed no bleeding in the brain. She states that she also hit the elbow and left knee with bruising noted. She states that she was not using an AD prior to her fall, and has been using both a walker and cane since the fall. She states that prior to her fall she was driving and completing all IADL's without assistance. She reports she has avoided leaving the home without assistance since her fall. She states that after her fall she realized she did not have the strength to get herself off the floor and has concern of her upper body strength. She states that since her fall she has avoided steps. She reports that her goal for therapy is to improve her overall strength and balance. Reported Pain Level Pain Score 2: Self Report Assessment PT Clinical Summary Pt. is an 79 year old female who enters the clinic 2 weeks after experiencing a fall at home. She presents with generalized l.e. weakness, u.e. weakness, impaired balance, impaired gait mechanics, moderate to high fall risk, and functional decline. Continued skilled PT is indicated in order to improve these areas to allow the pt. to be able to participate in all IADL's with improved safety and efficiency. Plan of Care Interventions Gait Training,Hot Pack/Cold Pack,Manual Therapy, Neuro Re-education,Patient/Caregiver Education, Therapeutic Activities,Therapeutic Exercise PT Services Indicated Yes Treatment Frequency and 2x/week x 10 visits Duration These treatments will address the objective and functional deficits as defined above. The patient will be advanced safely and appropriately in order for the patient to progress towards his/her prior level of function. Additional exercises will be introduced and as well as a comprehensive home exercise program upon discharge, if needed, ?to ensure carryover of functional gains achieved in the clinic. This treatment plan has been reviewed and agreement upon by the patient.
--- NOTE | 2025-04-26 11:17 | OPREHPOC ---
Outpatient Therapy Plan of Care This is a Multidisciplinary Plan of Care that may contain components documented by all disciplines (PT, OT, and ST.) PT Problem 1 PT Problem #1 Knowledge Deficit PT Goal 1 Goal / Goal Update Pt. will be independent with a HEP focusing on l.e . strength and u.e. strength. --------- 04-26-25 d/c goal met Target Visit 2 Progress Met PT Problem 2 PT Problem #2 Impaired Gait PT Goal 1 Goal / Goal Update Pt. will complete the 6 minute walk test over a distance of 1100' indicating improve gait efficiency --------- 04-26-25 d/c goal met, 1310' Target Visit 10 Progress Met PT Problem 3 PT Problem #3 Impaired Balance PT Goal 1 Goal / Goal Update Pt. will improve the sit to stand test to under 15 seconds indicating decreased fall risk Pt. will improve her Tinetti score to 24 or greater indicating low fall risk. --------- 04-26-25 d/c goal met for Tinetti; 5 reps improved to 16 seconds Target Visit 10 Progress Partially Met PT Problem 4 PT Problem #4 Impaired Strength PT Goal 1 Goal / Goal Update Pt. will present with 4+/5 gross bilateral l.e. and u.e. strength Pt. will improve bilateral toppiece chopper strength to 28# or greater. --------- 04-26-25 d/c goal met Target Visit 10 Progress Met
--- NOTE | 2025-04-26 11:17 | PTOPDC ---
Assessment and note entered by Tanisha Orlando, PT Assessment Status Discharge ICD-10 Condition Codes (PT) Pain in low back M54.50,Pain in left knee M25.562, Repeated falls R29.6 Onset 03/02/25 Subjective Information use the cane when I have to walk distances or uneven surfaces and in the middle of the night, keep it at my bedside to go to bathroom; feel confident with walking and legs are stronger; doing the exercises at home; Reported Pain Level Pain Score 5: Self Report Additional Pain Score Comments chronic pain in L knee Assessment PT Clinical Summary Danielle has received 10 PT sessions. 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 The goals were achieved, except 5 reps sit/stand. Discharge PT. She is to continue with her HEP and activity as tolerated. Plan of Care PT Services Indicated No
== END 2025-04-26 14:28 | disposition home or self-care (01) ==
LOC: ANHPT 10:45
PROVIDERS: PCP Internal Medicine; Visit Provider Clinical Nurse Specialist
DX: R26.81 Unsteadiness on feet (principal); M51.369 Other intervertebral disc degeneration, lumbar region without mention of lumbar back pain or lower extremity pain; Q76.49 Other congenital malformations of spine, not associated with scoliosis; M25.562 Pain in left knee; W19.XXXD Unspecified fall, subsequent encounter
CPT/HCPCS: 97110; 97112; 97116; 97161; 97530